=== PATIENT | male | born 1960 | race African-American/Black ===

== ENCOUNTER 2016-12-20 18:19 | Inpatient (IN) | payer MEDICAID ==
[~2016-12-20] VITALS: Ht 170.2 cm; Wt 123.8 kg
[~2016-12-20 18:19] MED LIST: ALEN70TA55 PO; ATOR10TA52 PO; BACL10TA PO; BACL20TA PO; CEPH-37 PO; CHOL10009 PO; DICL1CAP2 PO; ERGO1CAP6 PO; FAM20T PO; FAMO-12 PO; FUR40T PO; HYDR-4072 PO; INSU70IN3 SC; INSU70IN9 SC; LEV100T PO; LEVO150T10 PO; METO5TAB56 PO; NOR10T PO; POT10T PO; POTA10TA79 PO; SACC250C PO; [UNRECOGNIZED DRUG - CODE] EX
[2016-12-20 19:56] LABS: Basophils # (auto) 0 uL; Basophils % (auto) 0.1 % (0.0-2.0); CONDITION Y; Eosinophils # (auto) 0 uL; Eosinophils % (auto) 0.5 % (0.0-7.0); Hematocrit 45.3 % (41.0-53.0); Hemoglobin 15.2 g/dL (13.5-17.5); Lymphocytes # (auto) 1.9 uL; Lymphocytes % (auto) 21.1 % (10.0-50.0); Mean Corpuscular Hemoglobin 29.8 pg (28.0-32.0); Mean Corpuscular Hgb Conc. 33.5 g/dL (32.0-36.0); Mean Platelet Volume 10.7 fL (7.4-10.4); Monocytes # (auto) 0.4 uL; Monocytes % (auto) 4.7 % (0.0-12.0); Neutrophils # (auto) 6.6 uL; Neutrophils % (auto) 73.6 % (37.0-80.0); Platelet Count (auto) 231 10^3/uL (140-450); Red Cell Distribution Width 13.9 % (11.6-16.0)
[2016-12-20 20:16] LABS: Albumin 3.9 g/dL (3.4-5.0); Anion Gap 16 (5-15); Blood Urea Nitrogen 25 mg/dL (7-18); Calcium 8.6 mg/dL (8.5-10.1); Carbon Dioxide 31 mmol/L (21-32); Chloride 76 mmol/L (98-107); Sodium 123 mmol/L (136-145)
[2016-12-20 20:21] LABS: Aspartate Aminotransferase 30 U/L (15-37); BUN/Creatinine Ratio 11.5; GFR African American 41 mL/min; GFR Non-African American 34 mL/min; Total Protein 9.2 g/dL (6.4-8.2)
[2016-12-20 20:24] LABS: Alkaline Phosphatase 126 U/L (45-117)
[2016-12-20 20:28] LABS: Glucose 799 mg/dL (74-106); Potassium 2.6 mmol/L (3.5-5.1)
[2016-12-20] MEDS ORDERED: SODIUM CHLORIDE 0.9% 1,000 ML IV ONE ×2 (20:45→21:00)
[2016-12-20] MEDS ORDERED: cefTRIAXone 1GM/50ML D5W 50 ML IV ONE ×2 (21:00→21:15)
[2016-12-20] MEDS ORDERED: POTASSIUM CHL 20 Meq TABLET PO ONE (21:00)
[2016-12-20] MEDS: POTASSIUM CHL 20MEQ/100ML 100 ML IV SCH ×2 (21:09→22:46)
[2016-12-20] MEDS ORDERED: DOXYCYCLINE 100 MG TAB/CAP PO ONE (21:15)
[2016-12-20] MEDS ORDERED: LIDOCAINE W/ EPINEPHRINE 2% INJ 20ML VIAL ONE (21:30)
[2016-12-20] MEDS ORDERED: LIDOCAINE W/ EPINEPHRINE 2% INJ 20ML VIAL IJ ONE (21:30)
[2016-12-20] MEDS ORDERED: LIDOCAINE W/ EPINEPHRINE 1 % INJ 30ML ONE (21:30)
[2016-12-20] MEDS ORDERED: InsuLIN REG 1unit/0.01ml Soln (100units/ml) IV ONE (21:45)
[2016-12-20 21:55] LABS: B-Type Natriuretic Peptide 17.45 pg/mL (0-100); Temperature: 22.9 C (20.0-25.0)
[2016-12-20 21:56] LABS: Lactic Acid w/Reflex 2.5 mmol/L (0.4-2.0)
[2016-12-20 22:28] LABS: REFLEX LACTIC ACID YES OR NO YES
[2016-12-20] MEDS ORDERED: SULFAMETHOX W/TRIMETH(800/160MG) DS TAB PO ONE (23:00)
[2016-12-21] MEDS ORDERED: InsuLIN REG 1unit/0.01ml Soln (100units/ml) ONE (03:39)
[2016-12-21] MEDS ORDERED: SODIUM CHLORIDE 0.9% 1,000 ML IV SCH (06:40)
[2016-12-21] MEDS ORDERED: NITROGLYCERIN 0.4 MG SL TAB SL PRN (06:45)
[2016-12-21] MEDS ORDERED: DEXTROSE (50%) 50ML SYRG IV PRN (06:45)
[2016-12-21] MEDS ORDERED: TEMAZEPAM 15 MG CAP PO PRN (06:45)
[2016-12-21] MEDS ORDERED: ACETAMINOPHEN 325 MG TAB PO PRN (06:45)
[2016-12-21] MEDS ORDERED: MORPHINE SULF INJ 2 MG/ML SYRINGE 1ML IV PRN (06:45)
[2016-12-21] MEDS ORDERED: ONDANSETRON HCL 4 MG/2 ML VIAL IV PRN (06:45)
[2016-12-21] MEDS ORDERED: InsuLIN REG 1unit/0.01ml Soln (100units/ml) SC SCH (08:00)
[2016-12-21] MEDS: ACCU-CHEK COMFORT CURVE STRIP VI SCH ×3 (08:16→17:34)
[2016-12-21] MEDS: cefTRIAXone 1GM/50ML D5W 50 ML IV SCH (08:18)
[2016-12-21] MEDS: LEVOTHYROXINE SODIUM 50 MCG TAB PO SCH (08:38)
[2016-12-21] MEDS: FAMOTIDINE 20 MG TAB PO SCH ×2 (08:38→21:02)
[2016-12-21] MEDS: ENOXAPARIN SOD 40 MG/0.4 ML SYRINGE SC SCH (08:38)
[2016-12-21] MEDS: FUROSEMIDE 40 MG TAB PO SCH (08:38)
[2016-12-21 08:45] LABS: BUN/Creatinine Ratio 12.1
[2016-12-21 08:50] LABS: Potassium 2.9 mmol/L (3.5-5.1)
[2016-12-21] MEDS ORDERED: POTASSIUM CHL 20 Meq TABLET PO ONE ×2 (09:00→13:45)
[2016-12-21] MEDS ORDERED: MORPHINE SULFATE 4 MG/ML SYRG IV PRN (09:43)
[2016-12-21] MEDS ORDERED: POTASSIUM CHL 10 Meq TABLET PO SCH (10:00)
[2016-12-21 11:25] VITALS: BP 114/73
[2016-12-21 12:08] VITALS: BP 114/73
[2016-12-21 13:41] LABS: Urine Bilirubin Negative (Negative); Urine Blood Negative /uL (Negative); Urine Color Yellow (Yellow); Urine Ketone Negative (Negative); Urine Nitrite Negative (Negative); Urine RBC 1 /hpf (0 - 3); Urine Squamous Epithelial Cell FEW /hpf (<5); Urine Urobilinogen Normal (Negative)
[2016-12-21] MEDS ORDERED: SOD CHL 0.9%/ KCL 20MEQ 1,000 ML IV SCH (13:45)
[2016-12-21 13:58] LABS: Urine Glucose 4+ mg/dL (Normal)
[2016-12-21] MEDS ORDERED: INSULIN DETEMIR(LEVEMIR) 1unit/0.01ml Soln (100units/ml) SC ONE (14:45)
[2016-12-21] MEDS: MAGNESIUM SULFATE 1GM/100ML 100 ML IV SCH ×2 (15:34→17:01)
[2016-12-21 16:20] VITALS: BP 91/59
[2016-12-21] MEDS: InsuLIN REG 1unit/0.01ml Soln (100units/ml) SC SCH ×2 (17:35→21:13)
[2016-12-21 19:18] LABS: BUN/Creatinine Ratio 12.1; Calcium 8.2 mg/dL (8.5-10.1); Magnesium 3.1 mg/dL (1.6-2.6); Potassium 3.1 mmol/L (3.5-5.1)
[2016-12-21] MEDS: SOD CHL 0.9%/ KCL 20MEQ 1,000 ML IV SCH (21:02)
[2016-12-21] MEDS: INSULIN 70/30 1unit/0.01ml Susp (100units/ml) SC SCH (21:13)
[2016-12-21 22:00] VITALS: BP 89/41
[2016-12-21] MEDS ORDERED: INSULIN DETEMIR(LEVEMIR) 1unit/0.01ml Soln (100units/ml) SC SCH (22:00)
[2016-12-22] MEDS: SOD CHL 0.9%/ KCL 20MEQ 1,000 ML IV SCH (04:00)
[2016-12-22 05:30] VITALS: BP 100/67
[2016-12-22 06:44] LABS: Basophils # (auto) 0 uL; Basophils % (auto) 0.3 % (0.0-2.0); CONDITION Y; Eosinophils # (auto) 0.1 uL; Eosinophils % (auto) 1.1 % (0.0-7.0); Hematocrit 38.6 % (41.0-53.0); Hemoglobin 13.1 g/dL (13.5-17.5); Lymphocytes # (auto) 2.2 uL; Lymphocytes % (auto) 30.1 % (10.0-50.0); Mean Corpuscular Hemoglobin 30.3 pg (28.0-32.0); Mean Corpuscular Volume 89.2 fL (80.0-100.0); Mean Platelet Volume 10.5 fL (7.4-10.4); Monocytes # (auto) 0.5 uL; Monocytes % (auto) 6.8 % (0.0-12.0); Neutrophils # (auto) 4.6 uL; Neutrophils % (auto) 61.7 % (37.0-80.0); Platelet Count (auto) 205 10^3/uL (140-450); Red Cell Distribution Width 13.9 % (11.6-16.0); White Blood Cell 7.4 10^3/uL (4.4-10.8)
[2016-12-22] MEDS: InsuLIN REG 1unit/0.01ml Soln (100units/ml) SC SCH ×4 (06:52→21:13)
[2016-12-22] MEDS: ACCU-CHEK COMFORT CURVE STRIP VI SCH ×4 (06:52→21:13)
[2016-12-22] MEDS: LEVOTHYROXINE SODIUM 50 MCG TAB PO SCH (06:52)
[2016-12-22 07:11] LABS: Albumin 2.8 g/dL (3.4-5.0); BUN/Creatinine Ratio 13.9; Bilirubin, Total 0.5 mg/dL (0.2-1.0); Calcium 7.8 mg/dL (8.5-10.1)
[2016-12-22 07:14] LABS: Potassium 2.6 mmol/L (3.5-5.1)
[2016-12-22 08:00] VITALS: BP 91/59
[2016-12-22] MEDS: FAMOTIDINE 20 MG TAB PO SCH ×2 (08:33→21:14)
[2016-12-22] MEDS: cefTRIAXone 1GM/50ML D5W 50 ML IV SCH (08:33)
[2016-12-22] MEDS: D5W/SOD CHL 0.9%/KCL 40MEQ 1,000 ML IV SCH (08:34)
[2016-12-22] MEDS: FUROSEMIDE 40 MG TAB PO SCH (08:53)
[2016-12-22] MEDS: ENOXAPARIN SOD 40 MG/0.4 ML SYRINGE SC SCH (08:54)
[2016-12-22 09:05] VITALS: BP 91/59
[2016-12-22] MEDS: POTASSIUM CHL 10 Meq TABLET PO SCH (10:14)
[2016-12-22] MEDS: INSULIN 70/30 1unit/0.01ml Susp (100units/ml) SC SCH ×2 (10:15→21:58)
[2016-12-22] MEDS: HYDROcodone-ACET 5/325MG TAB PO PRN ×3 (12:12→21:12)
[2016-12-22 13:06] VITALS: BP 83/48
[2016-12-22 16:31] VITALS: BP 98/63
[2016-12-22 21:14] LABS: Urine RBC None Seen /hpf (0 - 3)
[2016-12-22] MEDS: NYSTATIN TOPICAL CREAM 15GM TOP SCH (21:19)
[2016-12-22 21:36] LABS: Urine Bilirubin Negative (Negative); Urine Blood Negative /uL (Negative); Urine Color Yellow (Yellow); Urine Ketone Negative (Negative); Urine Nitrite Negative (Negative); Urine Squamous Epithelial Cell FEW /hpf (<5); Urine Urobilinogen Normal (Negative)
[2016-12-22 21:40] LABS: Urine Glucose 4+ mg/dL (Normal)
[2016-12-22 22:00] VITALS: BP 92/58
[2016-12-23] MEDS: D5W/SOD CHL 0.9%/KCL 40MEQ 1,000 ML IV SCH (04:15)
[2016-12-23] MEDS: HYDROcodone-ACET 5/325MG TAB PO PRN ×2 (04:31→09:15)
[2016-12-23 05:00] VITALS: BP 92/62
[2016-12-23] MEDS: LEVOTHYROXINE SODIUM 50 MCG TAB PO SCH (06:03)
[2016-12-23] MEDS: INSULIN 70/30 1unit/0.01ml Susp (100units/ml) SC SCH ×2 (07:00→22:53)
[2016-12-23] MEDS: ACCU-CHEK COMFORT CURVE STRIP VI SCH ×4 (07:01→21:00)
[2016-12-23] MEDS: InsuLIN REG 1unit/0.01ml Soln (100units/ml) SC SCH ×4 (07:01→21:45)
[2016-12-23 08:00] VITALS: BP 90/44
[2016-12-23 08:26] LABS: Albumin 2.7 g/dL (3.4-5.0); BUN/Creatinine Ratio 11.4; Calcium 7.7 mg/dL (8.5-10.1); Potassium 3.1 mmol/L (3.5-5.1)
[2016-12-23 08:29] LABS: Bilirubin, Total 0.4 mg/dL (0.2-1.0); Total Protein 6.8 g/dL (6.4-8.2)
[2016-12-23] MEDS: FUROSEMIDE 40 MG TAB PO SCH (10:00)
[2016-12-23] MEDS: POTASSIUM CHL 10 Meq TABLET PO SCH (10:54)
[2016-12-23] MEDS: FAMOTIDINE 20 MG TAB PO SCH ×2 (10:54→22:50)
[2016-12-23] MEDS: cefTRIAXone 1GM/50ML D5W 50 ML IV SCH (10:54)
[2016-12-23] MEDS: ENOXAPARIN SOD 40 MG/0.4 ML SYRINGE SC SCH (10:55)
[2016-12-23] MEDS: NYSTATIN TOPICAL CREAM 15GM TOP SCH ×2 (10:57→22:56)
[2016-12-23 11:00] VITALS: BP 94/57
[2016-12-23 17:00] VITALS: BP 96/51
[2016-12-23] MEDS: FLUCONAZOLE 100 MG TAB PO SCH (18:47)
[2016-12-23] MEDS ORDERED: HYDROcodone-ACET 10/325MG TAB PO ONE (19:15)
[2016-12-23 20:00] VITALS: BP 98/72
[2016-12-23 22:00] VITALS: BP 98/72
[2016-12-24] VITALS (7 sets, daily range): BP systolic 84–109; BP diastolic 36–68
[2016-12-24 06:07] LABS: Basophils # (auto) 0 uL; Basophils % (auto) 0.6 % (0.0-2.0); CONDITION Y; Eosinophils # (auto) 0.1 uL; Eosinophils % (auto) 1.5 % (0.0-7.0); Hematocrit 39.4 % (41.0-53.0); Hemoglobin 13.1 g/dL (13.5-17.5); Lymphocytes # (auto) 2.6 uL; Lymphocytes % (auto) 34.4 % (10.0-50.0); Mean Corpuscular Hemoglobin 29.7 pg (28.0-32.0); Mean Corpuscular Hgb Conc. 33.2 g/dL (32.0-36.0); Mean Corpuscular Volume 89.4 fL (80.0-100.0); Monocytes # (auto) 0.6 uL; Monocytes % (auto) 7.5 % (0.0-12.0); Neutrophils # (auto) 4.2 uL; Platelet Count (auto) 223 10^3/uL (140-450); Red Cell Distribution Width 14.4 % (11.6-16.0); White Blood Cell 7.6 10^3/uL (4.4-10.8)
[2016-12-24] MEDS: InsuLIN REG 1unit/0.01ml Soln (100units/ml) SC SCH ×4 (06:11→22:42)
[2016-12-24] MEDS: ACCU-CHEK COMFORT CURVE STRIP VI SCH ×4 (06:12→21:00)
[2016-12-24] MEDS: LEVOTHYROXINE SODIUM 50 MCG TAB PO SCH (06:21)
[2016-12-24] MEDS: HYDROcodone-ACET 5/325MG TAB PO PRN ×3 (06:23→22:40)
[2016-12-24 06:35] LABS: BUN/Creatinine Ratio 12.5; Potassium 3.1 mmol/L (3.5-5.1)
[2016-12-24] MEDS: INSULIN 70/30 1unit/0.01ml Susp (100units/ml) SC SCH ×2 (07:00→23:40)
[2016-12-24] MEDS: FLUCONAZOLE 100 MG TAB PO SCH (10:41)
[2016-12-24] MEDS: ENOXAPARIN SOD 40 MG/0.4 ML SYRINGE SC SCH (10:41)
[2016-12-24] MEDS: POTASSIUM CHL 10 Meq TABLET PO SCH (10:41)
[2016-12-24] MEDS: FAMOTIDINE 20 MG TAB PO SCH ×2 (10:42→22:40)
[2016-12-24] MEDS: cefTRIAXone 1GM/50ML D5W 50 ML IV SCH (10:42)
[2016-12-24] MEDS: NYSTATIN TOPICAL CREAM 15GM TOP SCH ×2 (10:47→23:43)
[2016-12-24] MEDS ORDERED: INSULIN 70/30 1unit/0.01ml Susp (100units/ml) SC ONE (12:30)
[2016-12-24] MEDS ORDERED: POTASSIUM CHL 20 Meq TABLET PO ONE (12:30)
[2016-12-24] MEDS ORDERED: InsuLIN REG 1unit/0.01ml Soln (100units/ml) SC ONE (14:30)
[2016-12-25 05:00] VITALS: BP 100/68
[2016-12-25] MEDS: LEVOTHYROXINE SODIUM 50 MCG TAB PO SCH (06:57)
[2016-12-25] MEDS: ACCU-CHEK COMFORT CURVE STRIP VI SCH ×3 (06:58→17:52)
[2016-12-25] MEDS: InsuLIN REG 1unit/0.01ml Soln (100units/ml) SC SCH ×3 (06:58→18:08)
[2016-12-25] MEDS: INSULIN 70/30 1unit/0.01ml Susp (100units/ml) SC SCH (06:59)
[2016-12-25] MEDS: HYDROcodone-ACET 5/325MG TAB PO PRN ×2 (07:00→11:48)
[2016-12-25 09:02] VITALS: BP 93/52
[2016-12-25] MEDS: cefTRIAXone 1GM/50ML D5W 50 ML IV SCH (09:59)
[2016-12-25] MEDS: POTASSIUM CHL 10 Meq TABLET PO SCH (10:04)
[2016-12-25] MEDS: FLUCONAZOLE 100 MG TAB PO SCH (10:04)
[2016-12-25] MEDS: FAMOTIDINE 20 MG TAB PO SCH (10:04)
[2016-12-25] MEDS: ENOXAPARIN SOD 40 MG/0.4 ML SYRINGE SC SCH (10:05)
[2016-12-25] MEDS: NYSTATIN TOPICAL CREAM 15GM TOP SCH (10:05)
[2016-12-25 12:30] VITALS: BP 115/72
[2016-12-25 17:23] VITALS: BP 98/77
[2016-12-25 18:21] VITALS: BP 98/77
== END 2016-12-25 19:55 | disposition home or self-care (01) | DRG 383 ==
LOC: ER 18:50 → TELE 18:51 → TELE-E-ADS 12-21 09:39 → TELE-WESTW 12-21 15:22 → WEST WING 12-23 01:32
PROVIDERS: ADMIT Nurse Practitioner; ATTEND Hospitalist
DX: L02.11 Cutaneous abscess of neck (principal); E13.10 Other specified diabetes mellitus with ketoacidosis without coma; I95.9 Hypotension, unspecified; E11.22 Type 2 diabetes mellitus with diabetic chronic kidney disease; E87.1 Hypo-osmolality and hyponatremia; N39.0 Urinary tract infection, site not specified; E66.01 Morbid (severe) obesity due to excess calories; E87.6 Hypokalemia; E86.0 Dehydration; E03.9 Hypothyroidism, unspecified; N18.9 Chronic kidney disease, unspecified; F12.90 Cannabis use, unspecified, uncomplicated; T50.1X5A Adverse effect of loop [high-ceiling] diuretics, initial encounter; Z79.4 Long term (current) use of insulin; Z83.3 Family history of diabetes mellitus; Z82.0 Family history of epilepsy and other diseases of the nervous system; Z83.49 Family history of other endocrine, nutritional and metabolic diseases; Z71.89 Other specified counseling; Z68.41 Body mass index [BMI] 40.0-44.9, adult; Z87.891 Personal history of nicotine dependence
CPT/HCPCS: 10060; 36415; 71020; 71250; 80048; 80053; 80061; 81001; 82010; 82962; 83036; 83605; 83735; 83880; 84484; 85025; 87040; 87086; 87088; 87186; 93005; 96361; 96365; 96372; 96375; J0696; J1815; J3480

== ENCOUNTER 2023-07-05 17:33 | Inpatient (IN) | payer MEDICAID ==
[~2023-07-05] VITALS: Ht 170.2 cm; Wt 124.0 kg
[~2023-07-05 17:33] MED LIST changes: -ALEN70TA55 PO; +ALEN70TA74 PO; -BACL20TA PO; -CEPH-37 PO; -ERGO1CAP6 PO; -FAM20T PO; -FAMO-12 PO; +FAMO20TA10 PO; -HYDR-4072 PO; -INSU70IN3 SC; -LEVO150T10 PO; +METO5TAB5 PO; -METO5TAB56 PO; -POT10T PO; -POTA10TA79 PO; -SACC250C PO
[2023-07-05 18:56] LABS: Basophils # (auto) 0.1 10 ^3/uL (0-0.2); Basophils % (auto) 1.9 % (0.0-2.0); Eosinophils # (auto) 0.2 10 ^3/uL (0-0.8); Eosinophils % (auto) 4.2 % (0.0-7.0); Hematocrit 25.5 % (41.0-53.0); Hemoglobin 8.4 g/dL (13.5-17.5); Lymphocytes # (auto) 0.8 10 ^3/uL (0.4-5.4); Lymphocytes % (auto) 20.8 % (10.0-50.0); Mean Corpuscular Hemoglobin 30.8 pg (28.0-32.0); Mean Corpuscular Hgb Conc. 32.9 g/dL (32.0-36.0); Mean Corpuscular Volume 93.5 fL (80.0-100.0); Monocytes # (auto) 0.2 10 ^3/uL (0-1.3); Monocytes % (auto) 4.6 % (0.0-12.0); Neutrophils # (auto) 2.8 10 ^3/uL (1.6-8.6); Neutrophils % (auto) 68.5 % (37.0-80.0); Nucleated Red Blood Cells % 0.1 %; Red Blood Cells 2.72 10^6/uL (4.5-5.90); White Blood Cell 4.1 10^3/uL (4.4-10.8)
[2023-07-05 19:15] LABS: Alanine Aminotransferase 17 U/L (7-40); Albumin 3.8 g/dL (3.2-4.8); Alkaline Phosphatase 58 U/L (46-116); Anion Gap 22 (5-15); Aspartate Aminotransferase 26 U/L (13-40); Bilirubin, Total 0.2 mg/dL (0.2-1.0); Calcium 6.8 mg/dL (8.5-10.1); Carbon Dioxide 16 mmol/L (20-30); Chloride 97 mmol/L (98-107); Glucose 140 mg/dL (74-106); Sodium 135 mmol/L (136-145); Total Protein 7.8 g/dL (5.7-8.2)
[2023-07-05 19:24] LABS: Blood Urea Nitrogen 122 mg/dL (9-23); Potassium 5.8 mmol/L (3.5-5.1)
[2023-07-05] MEDS ORDERED: FUROSEMIDE 40 MG/4 ML VIAL IV ONE (21:15)
[2023-07-05] MEDS ORDERED: SODIUM ZIRCONIUM CYCL 10 GM PAK PO ONE (21:15)
[2023-07-05] MEDS ORDERED: DEXTROSE (50%) 50ML SYRG IV PRN (21:30)
[2023-07-05] MEDS ORDERED: ONDANSETRON HCL 4 MG/2 ML VIAL IV PRN (21:30)
[2023-07-05] MEDS ORDERED: HYDROcodone-ACET 5/325MG TAB PO PRN (21:30)
[2023-07-05] MEDS ORDERED: ACETAMINOPHEN 325 MG TAB PO PRN (21:30)
[2023-07-05] MEDS ORDERED: MAALOX PLUS or MAALOX 30 ML PO PRN (21:30)
[2023-07-05] MEDS ORDERED: MORPHINE SULFATE INJ 2 MG/ml SYRG IV PRN (21:30)
[2023-07-06 01:46] VITALS: PULSE 72; RESP 13; O2SAT 92
[2023-07-06] MEDS: ACCU-CHEK COMFORT CURVE STRIP VI SCH ×5 (02:30→22:17)
[2023-07-06] MEDS: InsuLIN REG 1unit/0.01ml Soln (100units/ml) SC SCH ×5 (02:30→22:00)
[2023-07-06 05:46] LABS: Basophils # (auto) 0.1 10 ^3/uL (0-0.2); Basophils % (auto) 1.8 % (0.0-2.0); Eosinophils # (auto) 0.2 10 ^3/uL (0-0.8); Eosinophils % (auto) 4.5 % (0.0-7.0); Hematocrit 25.8 % (41.0-53.0); Hemoglobin 8.5 g/dL (13.5-17.5); Lymphocytes % (auto) 25.5 % (10.0-50.0); Mean Corpuscular Hemoglobin 30.9 pg (28.0-32.0); Mean Corpuscular Hgb Conc. 33.1 g/dL (32.0-36.0); Mean Corpuscular Volume 93.4 fL (80.0-100.0); Monocytes # (auto) 0.2 10 ^3/uL (0-1.3); Monocytes % (auto) 4.7 % (0.0-12.0); Neutrophils # (auto) 2.5 10 ^3/uL (1.6-8.6); Neutrophils % (auto) 63.5 % (37.0-80.0); Nucleated Red Blood Cells % 0.2 %; Red Blood Cells 2.77 10^6/uL (4.5-5.90); White Blood Cell 3.9 10^3/uL (4.4-10.8)
[2023-07-06 05:47] LABS: Red Cell Distribution Width 22.1 % (11.8-14.3)
[2023-07-06 05:56] LABS: Calcium 6.8 mg/dL (8.5-10.1); Chloride 96 mmol/L (98-107); Sodium 135 mmol/L (136-145)
[2023-07-06 05:57] LABS: Anion Gap 22 (5-15); Carbon Dioxide 17 mmol/L (20-30)
[2023-07-06 06:02] LABS: BUN/Creatinine Ratio 6.8 (10.0-20.0); Glucose 77 mg/dL (74-106)
[2023-07-06 06:06] LABS: Blood Urea Nitrogen 138 mg/dL (9-23); Potassium 6.2 mmol/L (3.5-5.1)
[2023-07-06 07:30] VITALS: PULSE 64; RESP 18; O2SAT 94
[2023-07-06] MEDS ORDERED: DEXTROSE (50%) 50ML SYRG IV ONE (10:15)
[2023-07-06] MEDS ORDERED: ALBUTEROL SULF 2.5 MG/0.5ML(0.5%) NEB SOLN NEB ONE (10:15)
[2023-07-06] MEDS ORDERED: CALCIUM GLUC 1,000mg/50ml-NS 50 ML IV ONE (10:15)
[2023-07-06] MEDS ORDERED: FUROSEMIDE 40 MG/4 ML VIAL IV ONE (10:15)
[2023-07-06] MEDS ORDERED: InsuLIN REG 1unit/0.01ml Soln (100units/ml) IV ONE (10:15)
[2023-07-06] MEDS ORDERED: SODIUM ZIRCONIUM CYCL 10 GM PAK PO ONE (10:15)
[2023-07-06 11:13] LABS: Base Excess -12.3 mmol/L (-2.0-2.0)
[2023-07-06] MEDS ORDERED: ALENDRONATE SODIUM 10 MG TAB PO SCH (12:00)
[2023-07-06] MEDS ORDERED: DEXTROSE (50%) 50ML SYRG IV PRN (12:00)
[2023-07-06 12:21] LABS: Chloride 98 mmol/L (98-107); Sodium 135 mmol/L (136-145)
[2023-07-06 12:22] LABS: Anion Gap 20 (5-15); Calcium 6.4 mg/dL (8.5-10.1); Carbon Dioxide 17 mmol/L (20-30)
[2023-07-06 12:27] LABS: BUN/Creatinine Ratio 5.4 (10.0-20.0); Glucose 104 mg/dL (74-106)
[2023-07-06 12:29] LABS: Phosphorus 17.5 mg/dL (2.4-5.1)
[2023-07-06 12:38] LABS: Blood Urea Nitrogen 108 mg/dL (9-23); Potassium 6.1 mmol/L (3.5-5.1)
[2023-07-06] MEDS ORDERED: LEVOTHYROXINE SODIUM 50 MCG TAB PO ONE (14:15)
[2023-07-06 15:37] LABS: Anion Gap 22 (5-15); Carbon Dioxide 18 mmol/L (20-30); Chloride 96 mmol/L (98-107); Potassium 5.1 mmol/L (3.5-5.1); Sodium 136 mmol/L (136-145)
[2023-07-06 15:38] LABS: Calcium 6.6 mg/dL (8.5-10.1)
[2023-07-06 15:43] LABS: BUN/Creatinine Ratio 6.8 (10.0-20.0); Glucose 82 mg/dL (74-106)
[2023-07-06 15:54] LABS: Blood Urea Nitrogen 137 mg/dL (9-23)
[2023-07-06] MEDS ORDERED: SEVELAMER 800 MG TAB PO ONE (19:00)
[2023-07-06] MEDS ORDERED: ENOXAPARIN SOD 60 MG/0.6 ML SYRINGE SC ONE (19:00)
[2023-07-06] MEDS ORDERED: amLODIPine BESYLATE 5 MG TAB PO ONE (19:00)
[2023-07-06] MEDS: FUROSEMIDE 40 MG/4 ML VIAL IV SCH (19:09)
[2023-07-06 19:52] VITALS: PULSE 81; RESP 12; O2SAT 95
[2023-07-06] MEDS: HYDROcodone-ACET 5/325MG TAB PO PRN (21:17)
[2023-07-06 22:26] LABS: COVID19 ANTIGEN SOFIA FIA NEGATIVE (NEGATIVE); Rapid Influenza A Negative (Negative); Rapid Influenza B Negative (Negative)
[2023-07-06] MEDS: ATORVASTATIN 20 MG TAB PO SCH (22:29)
[2023-07-06 23:23] LABS: Urine Epithelial Cast None Seen /hpf (<5)
[2023-07-06 23:33] LABS: Urine Bacteria NONE SEEN /hpf (None Seen); Urine Blood 2+ /uL (Negative); Urine Clarity Clear (Clear); Urine Color Yellow (Yellow); Urine Protein, UAD 4+ (Negative); Urine Urobilinogen Normal (Negative); Urine WBC 5 /hpf (0 - 3)
[2023-07-06 23:35] LABS: Sodium Urine 31 mmol/L (40-220)
[2023-07-06 23:42] LABS: Amphetamine Screen, Urine Neg (NEGATIVE); Barbiturate Scree,Urine Neg (NEGATIVE); Benzodiazephine Screen, Urine Neg (NEGATIVE); Cocaine Screen, Urine Neg (NEGATIVE); Opiate Scree,Urine Neg (NEGATIVE)
[2023-07-06 23:43] LABS: Cannabinoid Screen, Urine Pos (NEGATIVE); Creatinine, Urine 66.31 mg/dL (30.0-125.0); Phencyclidine Screen, Urine Neg (NEGATIVE)
[2023-07-06 23:45] LABS: Protein, Urine > 2500.0 mg/dL (0.0-11.9)
[2023-07-07] MEDS: HYDROcodone-ACET 5/325MG TAB PO PRN (03:53)
[2023-07-07] MEDS: FUROSEMIDE 40 MG/4 ML VIAL IV SCH ×2 (06:09→17:36)
[2023-07-07] MEDS: ACCU-CHEK COMFORT CURVE STRIP VI SCH ×4 (06:53→22:25)
[2023-07-07] MEDS: InsuLIN REG 1unit/0.01ml Soln (100units/ml) SC SCH ×4 (06:53→22:00)
[2023-07-07] MEDS: LEVOTHYROXINE SODIUM 50 MCG TAB PO SCH (07:01)
[2023-07-07 07:07] LABS: Anion Gap 21 (5-15); Carbon Dioxide 15 mmol/L (20-30); Chloride 97 mmol/L (98-107); Sodium 133 mmol/L (136-145)
[2023-07-07 07:08] LABS: Calcium 6.2 mg/dL (8.7-10.4)
[2023-07-07 07:10] LABS: Basophils # (auto) 0.1 10 ^3/uL (0-0.2); Eosinophils # (auto) 0.1 10 ^3/uL (0-0.8); Eosinophils % (auto) 3.8 % (0.0-7.0); Hemoglobin 7.7 g/dL (13.5-17.5); Lymphocytes # (auto) 0.8 10 ^3/uL (0.4-5.4); Monocytes # (auto) 0.3 10 ^3/uL (0-1.3); White Blood Cell 3.9 10^3/uL (4.4-10.8)
[2023-07-07 07:12] LABS: Glucose 59 mg/dL (74-106); Uric Acid 9.3 mg/dL (3.7-9.2)
[2023-07-07 07:13] LABS: Magnesium 2.8 mg/dL (1.6-2.6)
[2023-07-07 07:14] LABS: Basophils % (auto) 1.5 % (0.0-2.0); Hematocrit 22.9 % (41.0-53.0); Lymphocytes % (auto) 21.6 % (10.0-50.0); Mean Corpuscular Hgb Conc. 33.7 g/dL (32.0-36.0); Mean Corpuscular Volume 95.1 fL (80.0-100.0); Monocytes % (auto) 7.9 % (0.0-12.0); Neutrophils # (auto) 2.5 10 ^3/uL (1.6-8.6); Neutrophils % (auto) 65.2 % (37.0-80.0); Nucleated Red Blood Cells % 0.2 %; Red Blood Cells 2.41 10^6/uL (4.5-5.90)
[2023-07-07 07:15] LABS: Phosphorus 17.2 mg/dL (2.4-5.1)
[2023-07-07 07:24] LABS: Blood Urea Nitrogen 137 mg/dL (9-23); Potassium 6.5 mmol/L (3.5-5.1)
[2023-07-07 07:28] LABS: Red Cell Distribution Width 21.3 % (11.8-14.3)
[2023-07-07 07:50] VITALS: PULSE 77; RESP 14; O2SAT 95
[2023-07-07] MEDS: SEVELAMER 800 MG TAB PO SCH ×3 (08:13→17:36)
[2023-07-07] MEDS: amLODIPine BESYLATE 5 MG TAB PO SCH (10:00)
[2023-07-07] MEDS: SODIUM ZIRCONIUM CYCL 10 GM PAK PO SCH (10:00)
[2023-07-07] MEDS: ENOXAPARIN SOD 60 MG/0.6 ML SYRINGE SC SCH (10:00)
[2023-07-07] MEDS ORDERED: LOPERAMIDE HCL 2 MG CAP/TAB PO PRN (12:30)
[2023-07-07 14:14] VITALS: BP 132/70; PULSE 83; PULSE 84; RESP 18; TEMP 97.3; O2SAT 100
[2023-07-07] MEDS: HYDROcodone-ACET 10/325MG TAB PO PRN (16:45)
[2023-07-07 20:00] VITALS: BP 129/67; PULSE 74; PULSE 77; RESP 22; TEMP 97.7; O2SAT 100
[2023-07-07 22:00] VITALS: BP 129/67; PULSE 77; RESP 22; TEMP 97.7; O2SAT 100
[2023-07-07] MEDS: ATORVASTATIN 20 MG TAB PO SCH (22:24)
[2023-07-08] VITALS (8 sets, daily range): BP systolic 102–147; BP diastolic 54–75; PULSE 77–88; RESP 17–22; TEMP 98.1–98.5; O2SAT 96–99
[2023-07-08] MEDS: LEVOTHYROXINE SODIUM 50 MCG TAB PO SCH (06:31)
[2023-07-08] MEDS: FUROSEMIDE 40 MG/4 ML VIAL IV SCH ×2 (06:32→17:51)
[2023-07-08 06:33] LABS: Basophils # (auto) 0.1 10 ^3/uL (0-0.2); Basophils % (auto) 1.6 % (0.0-2.0); Eosinophils # (auto) 0.1 10 ^3/uL (0-0.8); Lymphocytes # (auto) 0.7 10 ^3/uL (0.4-5.4); Mean Corpuscular Hemoglobin 30.6 pg (28.0-32.0); Monocytes # (auto) 0.3 10 ^3/uL (0-1.3); Neutrophils # (auto) 2.4 10 ^3/uL (1.6-8.6); Nucleated Red Blood Cells % 0.1 %; White Blood Cell 3.6 10^3/uL (4.4-10.8)
[2023-07-08 06:35] LABS: Hematocrit 24.2 % (41.0-53.0); Lymphocytes % (auto) 19.1 % (10.0-50.0); Mean Corpuscular Hgb Conc. 32.9 g/dL (32.0-36.0); Mean Corpuscular Volume 93.1 fL (80.0-100.0); Monocytes % (auto) 8.7 % (0.0-12.0); Neutrophils % (auto) 66.6 % (37.0-80.0)
[2023-07-08] MEDS: ACCU-CHEK COMFORT CURVE STRIP VI SCH ×2 (06:37→12:17)
[2023-07-08] MEDS: InsuLIN REG 1unit/0.01ml Soln (100units/ml) SC SCH ×2 (06:37→11:30)
[2023-07-08 06:40] LABS: Red Cell Distribution Width 21.4 % (11.8-14.3)
[2023-07-08 06:42] LABS: Chloride 99 mmol/L (98-107); Sodium 136 mmol/L (136-145)
[2023-07-08 06:43] LABS: Anion Gap 14 (5-15); Carbon Dioxide 23 mmol/L (20-30)
[2023-07-08 06:44] LABS: Calcium 6.3 mg/dL (8.7-10.4)
[2023-07-08 06:48] LABS: Glucose 87 mg/dL (74-106)
[2023-07-08 07:10] LABS: Blood Urea Nitrogen 103 mg/dL (9-23)
[2023-07-08] MEDS: SEVELAMER 800 MG TAB PO SCH ×3 (08:09→17:51)
[2023-07-08] MEDS: SODIUM ZIRCONIUM CYCL 10 GM PAK PO SCH (10:00)
[2023-07-08] MEDS: CALCIUM W/VIT D (600MG/400IU) TAB PO SCH (10:01)
[2023-07-08] MEDS: ENOXAPARIN SOD 60 MG/0.6 ML SYRINGE SC SCH (10:02)
[2023-07-08] MEDS: amLODIPine BESYLATE 5 MG TAB PO SCH (10:02)
[2023-07-08] MEDS: HYDROcodone-ACET 10/325MG TAB PO PRN (10:02)
[2023-07-08] MEDS: ATORVASTATIN 20 MG TAB PO SCH (20:47)
[2023-07-08] MEDS ORDERED: EPOETIN ALFA-EPBX 10,000 UNIT/1ML VIAL SC ONE (21:00)
[2023-07-09] VITALS (7 sets, daily range): BP systolic 124–150; BP diastolic 61–75; PULSE 76–83; RESP 16–22; TEMP 97.9–98.8; O2SAT 92–100
[2023-07-09] MEDS: HEPARIN SODIUM (PORCINE) 5000 UNITS/ML 1ML VIAL SC SCH ×3 (05:51→22:30)
[2023-07-09] MEDS: FUROSEMIDE 40 MG/4 ML VIAL IV SCH ×2 (05:54→17:22)
[2023-07-09] MEDS: LEVOTHYROXINE SODIUM 50 MCG TAB PO SCH (05:55)
[2023-07-09 06:50] LABS: Hematocrit 23.2 % (41.0-53.0); Hemoglobin 7.7 g/dL (13.5-17.5)
[2023-07-09 06:55] LABS: Chloride 98 mmol/L (98-107); Potassium 4.9 mmol/L (3.5-5.1); Sodium 135 mmol/L (136-145)
[2023-07-09 06:58] LABS: Anion Gap 16 (5-15); Carbon Dioxide 21 mmol/L (20-30)
[2023-07-09 06:59] LABS: Calcium 6.4 mg/dL (8.7-10.4)
[2023-07-09 07:03] LABS: BUN/Creatinine Ratio 5.8 (10.0-20.0); Glucose 83 mg/dL (74-106)
[2023-07-09 07:04] LABS: Magnesium 2.4 mg/dL (1.6-2.6)
[2023-07-09 07:05] LABS: % Iron Saturation 33.5 % (20-55)
[2023-07-09 07:07] LABS: Blood Urea Nitrogen 93 mg/dL (9-23)
[2023-07-09 08:41] LABS: Hepatitis B Surface Antigen Negative (Negative)
[2023-07-09 09:02] LABS: Hepatitis C Antibody Negative (Negative)
[2023-07-09] MEDS ORDERED: ENOXAPARIN SOD 60 MG/0.6 ML SYRINGE SC SCH (10:00)
[2023-07-09] MEDS: SEVELAMER 800 MG TAB PO SCH ×2 (13:29→17:23)
[2023-07-09] MEDS: amLODIPine BESYLATE 5 MG TAB PO SCH (13:29)
[2023-07-09] MEDS: CALCIUM W/VIT D (600MG/400IU) TAB PO SCH (13:30)
[2023-07-09] MEDS: DOCUSATE SOD 100 MG CAP PO PRN (22:26)
[2023-07-09] MEDS: ATORVASTATIN 20 MG TAB PO SCH (22:28)
[2023-07-10] VITALS (7 sets, daily range): BP systolic 115–149; BP diastolic 51–82; PULSE 78–91; RESP 16–20; TEMP 98.1–98.6; O2SAT 93–96
[2023-07-10] MEDS: HEPARIN SODIUM (PORCINE) 5000 UNITS/ML 1ML VIAL SC SCH ×3 (05:51→21:57)
[2023-07-10] MEDS: FUROSEMIDE 40 MG/4 ML VIAL IV SCH (05:54)
[2023-07-10] MEDS: LEVOTHYROXINE SODIUM 50 MCG TAB PO SCH (06:00)
[2023-07-10 06:39] LABS: Anion Gap 11 (5-15); Carbon Dioxide 26 mmol/L (20-30); Chloride 100 mmol/L (98-107); Potassium 4.1 mmol/L (3.5-5.1); Sodium 137 mmol/L (136-145)
[2023-07-10 06:40] LABS: Calcium 7.2 mg/dL (8.7-10.4)
[2023-07-10 06:45] LABS: BUN/Creatinine Ratio 4.7 (10.0-20.0); Glucose 71 mg/dL (74-106); Magnesium 2.2 mg/dL (1.6-2.6)
[2023-07-10 06:47] LABS: Phosphorus 7.5 mg/dL (2.4-5.1)
[2023-07-10 07:27] LABS: Blood Urea Nitrogen 54 mg/dL (9-23)
[2023-07-10] MEDS: amLODIPine BESYLATE 5 MG TAB PO SCH (09:34)
[2023-07-10] MEDS: CALCIUM W/VIT D (600MG/400IU) TAB PO SCH (09:34)
[2023-07-10] MEDS: SEVELAMER 800 MG TAB PO SCH ×3 (09:34→17:40)
[2023-07-10] MEDS: DOCUSATE SOD 100 MG CAP PO PRN (21:58)
[2023-07-10] MEDS: ATORVASTATIN 20 MG TAB PO SCH (21:59)
[2023-07-10] MEDS: METOPROLOL TARTRATE 25 MG TAB PO SCH (22:09)
[2023-07-11] VITALS (7 sets, daily range): BP systolic 122–150; BP diastolic 66–80; PULSE 73–80; RESP 17–20; TEMP 98–98.9; O2SAT 94–95
[2023-07-11] MEDS: HEPARIN SODIUM (PORCINE) 5000 UNITS/ML 1ML VIAL SC SCH ×3 (06:17→21:55)
[2023-07-11] MEDS: LEVOTHYROXINE SODIUM 50 MCG TAB PO SCH (06:18)
[2023-07-11 07:47] LABS: Chloride 100 mmol/L (98-107); Potassium 4.4 mmol/L (3.5-5.1); Sodium 136 mmol/L (136-145)
[2023-07-11 07:48] LABS: Anion Gap 12 (5-15); Carbon Dioxide 24 mmol/L (20-30)
[2023-07-11 07:49] LABS: Calcium 7.2 mg/dL (8.7-10.4)
[2023-07-11 07:50] LABS: Basophils # (auto) 0 10 ^3/uL (0-0.2); Eosinophils # (auto) 0.2 10 ^3/uL (0-0.8); Hemoglobin 7.6 g/dL (13.5-17.5); Monocytes # (auto) 0.3 10 ^3/uL (0-1.3); Neutrophils # (auto) 2.4 10 ^3/uL (1.6-8.6); Neutrophils % (auto) 59.7 % (37.0-80.0); Nucleated Red Blood Cells % 0.3 %
[2023-07-11 07:53] LABS: BUN/Creatinine Ratio 4.8 (10.0-20.0); Basophils % (auto) 1.2 % (0.0-2.0); Blood Urea Nitrogen 60 mg/dL (9-23); Eosinophils % (auto) 4.9 % (0.0-7.0); Glucose 69 mg/dL (74-106); Hematocrit 23.1 % (41.0-53.0); Mean Corpuscular Hemoglobin 30.8 pg (28.0-32.0); Mean Corpuscular Hgb Conc. 32.9 g/dL (32.0-36.0); Mean Corpuscular Volume 93.7 fL (80.0-100.0); Monocytes % (auto) 8.2 % (0.0-12.0); Red Blood Cells 2.46 10^6/uL (4.5-5.90)
[2023-07-11 07:54] LABS: Magnesium 2.4 mg/dL (1.6-2.6)
[2023-07-11 08:02] LABS: Red Cell Distribution Width 20.6 % (11.8-14.3)
[2023-07-11] MEDS: SEVELAMER 800 MG TAB PO SCH ×3 (09:26→18:03)
[2023-07-11] MEDS: CALCIUM W/VIT D (600MG/400IU) TAB PO SCH (09:26)
[2023-07-11] MEDS: FUROSEMIDE 40 MG/4 ML VIAL IV SCH (09:27)
[2023-07-11] MEDS: amLODIPine BESYLATE 5 MG TAB PO SCH (09:27)
[2023-07-11] MEDS: METOPROLOL TARTRATE 25 MG TAB PO SCH ×2 (09:27→21:51)
[2023-07-11] MEDS ORDERED: SODIUM CHL 0.9% 1000 ML BAG XX ONE (09:30)
[2023-07-11] MEDS ORDERED: EPOETIN ALFA-EPBX 10,000 UNIT/1ML VIAL SC ONE (21:00)
[2023-07-11] MEDS: ATORVASTATIN 20 MG TAB PO SCH (21:49)
[2023-07-12] VITALS (7 sets, daily range): BP systolic 121–141; BP diastolic 68–79; PULSE 75–84; RESP 17–18; TEMP 98–98.2; O2SAT 93–95
[2023-07-12] MEDS: HEPARIN SODIUM (PORCINE) 5000 UNITS/ML 1ML VIAL SC SCH (06:00)
[2023-07-12 06:14] LABS: Eosinophils # (auto) 0.2 10 ^3/uL (0-0.8); Monocytes # (auto) 0.4 10 ^3/uL (0-1.3)
[2023-07-12] MEDS: LEVOTHYROXINE SODIUM 50 MCG TAB PO SCH (06:17)
[2023-07-12 06:23] LABS: Chloride 102 mmol/L (98-107); Potassium 4.3 mmol/L (3.5-5.1); Sodium 138 mmol/L (136-145)
[2023-07-12 06:24] LABS: Anion Gap 10 (5-15); Calcium 7.6 mg/dL (8.7-10.4); Carbon Dioxide 26 mmol/L (20-30)
[2023-07-12 06:29] LABS: Glucose 71 mg/dL (74-106)
[2023-07-12 06:30] LABS: Magnesium 2.1 mg/dL (1.6-2.6)
[2023-07-12 06:32] LABS: Blood Urea Nitrogen 40 mg/dL (9-23); Phosphorus 5.9 mg/dL (2.4-5.1)
[2023-07-12 06:54] LABS: Basophils # (auto) 0.1 10 ^3/uL (0-0.2); Basophils % (auto) 1.2 % (0.0-2.0); Eosinophils % (auto) 4.7 % (0.0-7.0); Hematocrit 24.7 % (41.0-53.0); Lymphocytes % (auto) 20.7 % (10.0-50.0); Mean Corpuscular Hgb Conc. 32.5 g/dL (32.0-36.0); Mean Corpuscular Volume 92.3 fL (80.0-100.0); Monocytes % (auto) 8.2 % (0.0-12.0); Neutrophils # (auto) 3.1 10 ^3/uL (1.6-8.6); Neutrophils % (auto) 65.2 % (37.0-80.0); Nucleated Red Blood Cells % 0.1 %; Red Blood Cells 2.67 10^6/uL (4.5-5.90); Red Cell Distribution Width 19.7 % (11.8-14.3); White Blood Cell 4.7 10^3/uL (4.4-10.8)
[2023-07-12] MEDS: SEVELAMER 800 MG TAB PO SCH ×3 (08:24→18:01)
[2023-07-12] MEDS: METOPROLOL TARTRATE 25 MG TAB PO SCH ×2 (10:05→23:32)
[2023-07-12] MEDS: CALCIUM W/VIT D (600MG/400IU) TAB PO SCH (10:05)
[2023-07-12] MEDS: amLODIPine BESYLATE 5 MG TAB PO SCH (10:06)
[2023-07-12] MEDS: FUROSEMIDE 40 MG/4 ML VIAL IV SCH (10:06)
[2023-07-12 17:06] LABS: Vitamin D-3 25-Hydroxy 9.8 ng/mL (.)
[2023-07-12] MEDS: ATORVASTATIN 20 MG TAB PO SCH (23:31)
[2023-07-13 05:00] VITALS: BP 128/71; PULSE 73; RESP 19; TEMP 98.3; O2SAT 96
[2023-07-13] MEDS: LEVOTHYROXINE SODIUM 50 MCG TAB PO SCH (06:39)
[2023-07-13 06:54] LABS: Eosinophils # (auto) 0.2 10 ^3/uL (0-0.8); Lymphocytes % (auto) 19.2 % (10.0-50.0); White Blood Cell 4.4 10^3/uL (4.4-10.8)
[2023-07-13 06:58] LABS: Basophils # (auto) 0.1 10 ^3/uL (0-0.2); Basophils % (auto) 1.1 % (0.0-2.0); Hematocrit 23.7 % (41.0-53.0); Lymphocytes # (auto) 0.9 10 ^3/uL (0.4-5.4); Mean Corpuscular Hemoglobin 32.2 pg (28.0-32.0); Mean Corpuscular Hgb Conc. 33.6 g/dL (32.0-36.0); Mean Corpuscular Volume 96.1 fL (80.0-100.0); Monocytes # (auto) 0.3 10 ^3/uL (0-1.3); Monocytes % (auto) 6.9 % (0.0-12.0); Neutrophils % (auto) 67.8 % (37.0-80.0); Nucleated Red Blood Cells % 0.3 %; Red Blood Cells 2.47 10^6/uL (4.5-5.90); Red Cell Distribution Width 19.6 % (11.8-14.3)
[2023-07-13 07:06] LABS: Alanine Aminotransferase 13 U/L (7-40); Albumin 3.3 g/dL (3.2-4.8); Alkaline Phosphatase 46 U/L (46-116); Anion Gap 10 (5-15); Aspartate Aminotransferase 26 U/L (13-40); BUN/Creatinine Ratio 3.8 (10.0-20.0); Blood Urea Nitrogen 42 mg/dL (9-23); Calcium 7.9 mg/dL (8.7-10.4); Carbon Dioxide 24 mmol/L (20-30); Chloride 103 mmol/L (98-107); Glucose 79 mg/dL (74-106); Magnesium 2.3 mg/dL (1.6-2.6); Potassium 4.4 mmol/L (3.5-5.1); Sodium 137 mmol/L (136-145)
[2023-07-13 07:07] LABS: Bilirubin, Total 0.3 mg/dL (0.2-1.0)
[2023-07-13 08:00] VITALS: PULSE 75; RESP 18; O2SAT 94
[2023-07-13] MEDS: SEVELAMER 800 MG TAB PO SCH ×3 (08:12→18:26)
[2023-07-13] MEDS: METOPROLOL TARTRATE 25 MG TAB PO SCH ×2 (10:00→23:26)
[2023-07-13] MEDS: CALCIUM W/VIT D (600MG/400IU) TAB PO SCH (10:00)
[2023-07-13] MEDS: amLODIPine BESYLATE 5 MG TAB PO SCH (10:00)
[2023-07-13] MEDS: FUROSEMIDE 40 MG/4 ML VIAL IV SCH (10:00)
[2023-07-13 13:00] VITALS: BP 135/68; PULSE 81; RESP 18; TEMP 98.3; O2SAT 96
[2023-07-13 17:00] VITALS: BP 139/70; PULSE 80; RESP 18; TEMP 98.7; O2SAT 97
[2023-07-13 20:00] VITALS: BP 135/79; PULSE 79; RESP 18; TEMP 99; O2SAT 99
[2023-07-13] MEDS: ATORVASTATIN 20 MG TAB PO SCH (23:26)
[2023-07-14] VITALS (7 sets, daily range): BP systolic 116–151; BP diastolic 58–87; PULSE 70–83; RESP 16–18; TEMP 97.9–99.2; O2SAT 90–97
[2023-07-14 06:49] LABS: Basophils # (auto) 0.1 10 ^3/uL (0-0.2); Basophils % (auto) 1.1 % (0.0-2.0); Eosinophils # (auto) 0.2 10 ^3/uL (0-0.8); Hematocrit 23.5 % (41.0-53.0); Hemoglobin 7.8 g/dL (13.5-17.5); Monocytes # (auto) 0.3 10 ^3/uL (0-1.3); Nucleated Red Blood Cells % 0.2 %; White Blood Cell 4.7 10^3/uL (4.4-10.8)
[2023-07-14 06:52] LABS: Eosinophils % (auto) 3.9 % (0.0-7.0); Lymphocytes # (auto) 0.9 10 ^3/uL (0.4-5.4); Lymphocytes % (auto) 20.1 % (10.0-50.0); Mean Corpuscular Hemoglobin 31.4 pg (28.0-32.0); Monocytes % (auto) 7.2 % (0.0-12.0); Neutrophils # (auto) 3.2 10 ^3/uL (1.6-8.6); Neutrophils % (auto) 67.7 % (37.0-80.0); Red Blood Cells 2.48 10^6/uL (4.5-5.90); Red Cell Distribution Width 19.2 % (11.8-14.3)
[2023-07-14] MEDS: LEVOTHYROXINE SODIUM 50 MCG TAB PO SCH (07:00)
[2023-07-14 07:01] LABS: Anion Gap 8 (5-15); Calcium 7.5 mg/dL (8.7-10.4); Carbon Dioxide 28 mmol/L (20-30); Chloride 102 mmol/L (98-107); Potassium 4.2 mmol/L (3.5-5.1); Sodium 138 mmol/L (136-145)
[2023-07-14 07:07] LABS: BUN/Creatinine Ratio 3.8 (10.0-20.0); Blood Urea Nitrogen 34 mg/dL (9-23); Glucose 80 mg/dL (74-106); Magnesium 2.1 mg/dL (1.6-2.6)
[2023-07-14] MEDS: SEVELAMER 800 MG TAB PO SCH ×3 (08:12→18:05)
[2023-07-14] MEDS: FUROSEMIDE 40 MG/4 ML VIAL IV SCH (10:43)
[2023-07-14] MEDS: CALCIUM W/VIT D (600MG/400IU) TAB PO SCH (10:43)
[2023-07-14] MEDS: METOPROLOL TARTRATE 25 MG TAB PO SCH ×2 (10:44→23:14)
[2023-07-14] MEDS: amLODIPine BESYLATE 5 MG TAB PO SCH (10:44)
[2023-07-14] MEDS: HYDROcodone-ACET 10/325MG TAB PO PRN (13:24)
[2023-07-14] MEDS: ATORVASTATIN 20 MG TAB PO SCH (23:14)
[2023-07-15] VITALS (7 sets, daily range): BP systolic 118–139; BP diastolic 59–77; PULSE 69–77; RESP 17–18; TEMP 97.4–97.8; O2SAT 17–98
[2023-07-15] MEDS: HYDROcodone-ACET 10/325MG TAB PO PRN ×2 (02:37→21:13)
[2023-07-15 06:07] LABS: Basophils # (auto) 0 10 ^3/uL (0-0.2); Basophils % (auto) 0.9 % (0.0-2.0); Eosinophils # (auto) 0.2 10 ^3/uL (0-0.8); Hematocrit 24.8 % (41.0-53.0); Hemoglobin 8.1 g/dL (13.5-17.5); Lymphocytes % (auto) 18.8 % (10.0-50.0); Mean Corpuscular Hemoglobin 31.5 pg (28.0-32.0); Mean Corpuscular Hgb Conc. 32.6 g/dL (32.0-36.0); Mean Corpuscular Volume 96.5 fL (80.0-100.0); Monocytes # (auto) 0.3 10 ^3/uL (0-1.3); Monocytes % (auto) 6.2 % (0.0-12.0); Neutrophils # (auto) 3.6 10 ^3/uL (1.6-8.6); Neutrophils % (auto) 70.1 % (37.0-80.0); Nucleated Red Blood Cells % 0.2 %; Red Blood Cells 2.57 10^6/uL (4.5-5.90); Red Cell Distribution Width 19.3 % (11.8-14.3); White Blood Cell 5.2 10^3/uL (4.4-10.8)
[2023-07-15 06:30] LABS: Alanine Aminotransferase 10 U/L (7-40); Albumin 3.6 g/dL (3.2-4.8); Alkaline Phosphatase 48 U/L (46-116); Anion Gap 9 (5-15); Aspartate Aminotransferase 28 U/L (13-40); BUN/Creatinine Ratio 3.2 (10.0-20.0); Blood Urea Nitrogen 33 mg/dL (9-23); Calcium 8.2 mg/dL (8.7-10.4); Carbon Dioxide 26 mmol/L (20-30); Chloride 103 mmol/L (98-107); Glucose 78 mg/dL (74-106); Potassium 4.4 mmol/L (3.5-5.1); Sodium 138 mmol/L (136-145)
[2023-07-15 06:31] LABS: Bilirubin, Total 0.3 mg/dL (0.2-1.0); Total Protein 7.4 g/dL (5.7-8.2)
[2023-07-15] MEDS: LEVOTHYROXINE SODIUM 50 MCG TAB PO SCH (06:38)
[2023-07-15] MEDS: SEVELAMER 800 MG TAB PO SCH ×3 (08:03→17:56)
[2023-07-15] MEDS: CALCIUM W/VIT D (600MG/400IU) TAB PO SCH (10:11)
[2023-07-15] MEDS: amLODIPine BESYLATE 5 MG TAB PO SCH (10:11)
[2023-07-15] MEDS: METOPROLOL TARTRATE 25 MG TAB PO SCH ×2 (10:11→21:57)
[2023-07-15] MEDS: FUROSEMIDE 40 MG TAB PO SCH (10:11)
[2023-07-15] MEDS: ATORVASTATIN 20 MG TAB PO SCH (21:13)
[2023-07-16] VITALS (7 sets, daily range): BP systolic 108–136; BP diastolic 52–77; PULSE 72–78; RESP 16–19; TEMP 97.3–98.1; O2SAT 93–98
[2023-07-16 06:00] LABS: Monocytes # (auto) 0.3 10 ^3/uL (0-1.3)
[2023-07-16 06:03] LABS: Basophils # (auto) 0.1 10 ^3/uL (0-0.2); Basophils % (auto) 1.2 % (0.0-2.0); Eosinophils # (auto) 0.3 10 ^3/uL (0-0.8); Eosinophils % (auto) 5.9 % (0.0-7.0); Hematocrit 25.2 % (41.0-53.0); Hemoglobin 8.1 g/dL (13.5-17.5); Lymphocytes # (auto) 0.9 10 ^3/uL (0.4-5.4); Lymphocytes % (auto) 20.1 % (10.0-50.0); Mean Corpuscular Hemoglobin 31.6 pg (28.0-32.0); Mean Corpuscular Volume 98.8 fL (80.0-100.0); Monocytes % (auto) 7.2 % (0.0-12.0); Neutrophils # (auto) 2.8 10 ^3/uL (1.6-8.6); Neutrophils % (auto) 65.6 % (37.0-80.0); Nucleated Red Blood Cells % 0.1 %; Red Blood Cells 2.55 10^6/uL (4.5-5.90); Red Cell Distribution Width 18.9 % (11.8-14.3); White Blood Cell 4.3 10^3/uL (4.4-10.8)
[2023-07-16 06:09] LABS: Alanine Aminotransferase 11 U/L (7-40); Albumin 3.3 g/dL (3.2-4.8); Alkaline Phosphatase 47 U/L (46-116); Anion Gap 10 (5-15); Aspartate Aminotransferase 31 U/L (13-40); Blood Urea Nitrogen 33 mg/dL (9-23); Calcium 7.7 mg/dL (8.7-10.4); Carbon Dioxide 24 mmol/L (20-30); Chloride 102 mmol/L (98-107); Glucose 66 mg/dL (74-106); Magnesium 2.5 mg/dL (1.6-2.6); Potassium 4.7 mmol/L (3.5-5.1); Sodium 136 mmol/L (136-145)
[2023-07-16 06:10] LABS: Bilirubin, Total 0.3 mg/dL (0.2-1.0); Total Protein 6.9 g/dL (5.7-8.2)
[2023-07-16 06:30] LABS: BUN/Creatinine Ratio 2.9 (10.0-20.0)
[2023-07-16] MEDS: LEVOTHYROXINE SODIUM 50 MCG TAB PO SCH (06:47)
[2023-07-16] MEDS ORDERED: SODIUM CHL 0.9% 1000 ML BAG XX ONE (07:00)
[2023-07-16] MEDS: SEVELAMER 800 MG TAB PO SCH ×3 (07:23→18:21)
[2023-07-16 09:12] LABS: Platelet Estimate Decreased
[2023-07-16 09:13] LABS: Giant Platelets Few
[2023-07-16 09:14] LABS: RBC Morphology Normal
[2023-07-16] MEDS: CALCIUM W/VIT D (600MG/400IU) TAB PO SCH (09:41)
[2023-07-16] MEDS: amLODIPine BESYLATE 5 MG TAB PO SCH (09:41)
[2023-07-16] MEDS: FUROSEMIDE 40 MG TAB PO SCH (09:41)
[2023-07-16] MEDS: METOPROLOL TARTRATE 25 MG TAB PO SCH ×2 (09:41→21:41)
[2023-07-16] MEDS ORDERED: EPOETIN ALFA-EPBX 10,000 UNIT/1ML VIAL SC ONE (21:00)
[2023-07-16] MEDS: ATORVASTATIN 20 MG TAB PO SCH (21:38)
[2023-07-17] VITALS (7 sets, daily range): BP systolic 123–138; BP diastolic 64–82; PULSE 78–88; RESP 17–94; TEMP 98–98.8; O2SAT 94–100
[2023-07-17 05:47] LABS: Anion Gap 6 (5-15); Carbon Dioxide 30 mmol/L (20-30); Chloride 102 mmol/L (98-107); Potassium 4.7 mmol/L (3.5-5.1); Sodium 138 mmol/L (136-145)
[2023-07-17 05:49] LABS: Calcium 7.9 mg/dL (8.5-10.1)
[2023-07-17 05:50] LABS: Basophils # (auto) 0.1 10 ^3/uL (0-0.2); Basophils % (auto) 1.5 % (0.0-2.0); Eosinophils # (auto) 0.2 10 ^3/uL (0-0.8); Eosinophils % (auto) 3.8 % (0.0-7.0); Hematocrit 25.6 % (41.0-53.0); Hemoglobin 8.5 g/dL (13.5-17.5); Lymphocytes % (auto) 22.9 % (10.0-50.0); Mean Corpuscular Hemoglobin 31.8 pg (28.0-32.0); Mean Corpuscular Hgb Conc. 33.1 g/dL (32.0-36.0); Mean Corpuscular Volume 96.2 fL (80.0-100.0); Monocytes # (auto) 0.4 10 ^3/uL (0-1.3); Monocytes % (auto) 9.6 % (0.0-12.0); Neutrophils # (auto) 2.6 10 ^3/uL (1.6-8.6); Neutrophils % (auto) 62.2 % (37.0-80.0); Nucleated Red Blood Cells % 0.2 %; Red Blood Cells 2.66 10^6/uL (4.5-5.90); White Blood Cell 4.3 10^3/uL (4.4-10.8)
[2023-07-17 05:53] LABS: Glucose 71 mg/dL (74-106)
[2023-07-17 05:54] LABS: BUN/Creatinine Ratio 3.3 (10.0-20.0); Blood Urea Nitrogen 31 mg/dL (9-23)
[2023-07-17] MEDS: LEVOTHYROXINE SODIUM 50 MCG TAB PO SCH (06:11)
[2023-07-17 07:04] LABS: Anisocytosis Slight; Platelet Estimate Decreased
[2023-07-17] MEDS: SEVELAMER 800 MG TAB PO SCH ×3 (08:04→18:11)
[2023-07-17] MEDS: CALCIUM W/VIT D (600MG/400IU) TAB PO SCH (10:05)
[2023-07-17] MEDS: METOPROLOL TARTRATE 25 MG TAB PO SCH ×2 (10:06→22:22)
[2023-07-17] MEDS: FUROSEMIDE 40 MG TAB PO SCH (10:07)
[2023-07-17] MEDS: amLODIPine BESYLATE 5 MG TAB PO SCH (10:07)
[2023-07-17] MEDS: ATORVASTATIN 20 MG TAB PO SCH (22:20)
[2023-07-18 05:00] VITALS: BP 125/70; PULSE 78; RESP 17; TEMP 98.2; O2SAT 96
[2023-07-18] MEDS: LEVOTHYROXINE SODIUM 50 MCG TAB PO SCH (06:21)
[2023-07-18 06:46] LABS: Lymphocytes # (auto) 1.1 10 ^3/uL (0.4-5.4); Lymphocytes % (auto) 26.4 % (10.0-50.0); Mean Corpuscular Hemoglobin 30.9 pg (28.0-32.0); Mean Corpuscular Hgb Conc. 32.7 g/dL (32.0-36.0); Monocytes # (auto) 0.4 10 ^3/uL (0-1.3); Monocytes % (auto) 10.2 % (0.0-12.0); Neutrophils # (auto) 2.4 10 ^3/uL (1.6-8.6); Red Blood Cells 2.54 10^6/uL (4.5-5.90)
[2023-07-18 06:48] LABS: Basophils # (auto) 0 10 ^3/uL (0-0.2); Basophils % (auto) 1.1 % (0.0-2.0); Eosinophils # (auto) 0.1 10 ^3/uL (0-0.8); Eosinophils % (auto) 3.4 % (0.0-7.0); Mean Corpuscular Volume 94.4 fL (80.0-100.0); Neutrophils % (auto) 58.9 % (37.0-80.0); Red Cell Distribution Width 18.1 % (11.8-14.3); White Blood Cell 4.1 10^3/uL (4.4-10.8)
[2023-07-18 06:53] LABS: Calcium 7.5 mg/dL (8.7-10.4); Carbon Dioxide 28 mmol/L (20-30); Chloride 102 mmol/L (98-107); Potassium 4.6 mmol/L (3.5-5.1)
[2023-07-18 06:54] LABS: Anion Gap 8 (5-15); Sodium 138 mmol/L (136-145)
[2023-07-18 07:00] LABS: BUN/Creatinine Ratio 3.8 (10.0-20.0); Blood Urea Nitrogen 42 mg/dL (9-23); Glucose 87 mg/dL (74-106)
[2023-07-18 07:17] LABS: Hemoglobin 7.8 g/dL (13.5-17.5)
[2023-07-18 08:00] VITALS: RESP 19; O2SAT 98
[2023-07-18] MEDS: SEVELAMER 800 MG TAB PO SCH ×3 (08:59→18:45)
[2023-07-18] MEDS: amLODIPine BESYLATE 5 MG TAB PO SCH (10:00)
[2023-07-18] MEDS: FUROSEMIDE 40 MG TAB PO SCH (10:00)
[2023-07-18] MEDS: CALCIUM W/VIT D (600MG/400IU) TAB PO SCH (10:00)
[2023-07-18] MEDS: METOPROLOL TARTRATE 25 MG TAB PO SCH ×2 (10:00→21:38)
[2023-07-18 10:15] VITALS: BP 135/69; PULSE 81; RESP 19; TEMP 97.6; O2SAT 99
[2023-07-18 13:15] VITALS: BP 104/55; PULSE 86; RESP 17; TEMP 98.2; O2SAT 94
[2023-07-18 17:17] VITALS: BP 118/72; PULSE 92; RESP 18; TEMP 98.1; O2SAT 98
[2023-07-18 20:00] VITALS: BP 150/77; PULSE 85; RESP 20; TEMP 97.9; O2SAT 100
[2023-07-18] MEDS: ATORVASTATIN 20 MG TAB PO SCH (21:35)
[2023-07-19 04:50] VITALS: BP 118/65; PULSE 83; RESP 20; TEMP 98.1; O2SAT 93
[2023-07-19 06:02] LABS: Basophils # (auto) 0.1 10 ^3/uL (0-0.2); Basophils % (auto) 1.4 % (0.0-2.0); Eosinophils # (auto) 0.2 10 ^3/uL (0-0.8); Hematocrit 24.2 % (41.0-53.0); Hemoglobin 7.9 g/dL (13.5-17.5); Lymphocytes # (auto) 0.9 10 ^3/uL (0.4-5.4); Mean Corpuscular Hgb Conc. 32.5 g/dL (32.0-36.0); Monocytes # (auto) 0.4 10 ^3/uL (0-1.3)
[2023-07-19 06:10] LABS: Eosinophils % (auto) 4.2 % (0.0-7.0); Lymphocytes % (auto) 22.6 % (10.0-50.0); Mean Corpuscular Hemoglobin 30.8 pg (28.0-32.0); Mean Corpuscular Volume 94.7 fL (80.0-100.0); Monocytes % (auto) 10.3 % (0.0-12.0); Neutrophils # (auto) 2.5 10 ^3/uL (1.6-8.6); Neutrophils % (auto) 61.5 % (37.0-80.0); Nucleated Red Blood Cells % 0.1 %; Red Blood Cells 2.56 10^6/uL (4.5-5.90); Red Cell Distribution Width 18.6 % (11.8-14.3)
[2023-07-19] MEDS: LEVOTHYROXINE SODIUM 50 MCG TAB PO SCH (06:24)
[2023-07-19 06:32] LABS: Anion Gap 7 (5-15); Carbon Dioxide 28 mmol/L (20-30); Chloride 105 mmol/L (98-107); Potassium 4.6 mmol/L (3.5-5.1); Sodium 140 mmol/L (136-145)
[2023-07-19 06:33] LABS: Calcium 7.9 mg/dL (8.5-10.1)
[2023-07-19 06:38] LABS: BUN/Creatinine Ratio 3.6 (10.0-20.0); Blood Urea Nitrogen 33 mg/dL (9-23); Glucose 84 mg/dL (74-106)
[2023-07-19 06:51] LABS: Anisocytosis Slight; Platelet Estimate Decreased
[2023-07-19 07:40] VITALS: BP 124/64; PULSE 80; RESP 16; TEMP 98.3; O2SAT 94
[2023-07-19] MEDS: FUROSEMIDE 40 MG TAB PO SCH (10:12)
[2023-07-19] MEDS: SEVELAMER 800 MG TAB PO SCH ×3 (10:12→17:40)
[2023-07-19] MEDS: amLODIPine BESYLATE 5 MG TAB PO SCH (10:13)
[2023-07-19] MEDS: CALCIUM W/VIT D (600MG/400IU) TAB PO SCH (10:13)
[2023-07-19] MEDS: METOPROLOL TARTRATE 25 MG TAB PO SCH ×2 (10:13→22:00)
[2023-07-19 11:46] VITALS: BP 123/67; PULSE 80; RESP 16; TEMP 98.4; O2SAT 96
[2023-07-19 16:39] VITALS: BP 155/69; PULSE 86; RESP 17; TEMP 98.6; O2SAT 98
[2023-07-19 22:00] VITALS: BP 142/75; PULSE 82; RESP 18; TEMP 98.5; O2SAT 97
[2023-07-19] MEDS: HYDROcodone-ACET 10/325MG TAB PO PRN (22:00)
[2023-07-19] MEDS: ATORVASTATIN 20 MG TAB PO SCH (22:00)
[2023-07-20] MEDS: LEVOTHYROXINE SODIUM 50 MCG TAB PO SCH (06:49)
[2023-07-20 07:00] LABS: Basophils # (auto) 0.1 10 ^3/uL (0-0.2); Eosinophils # (auto) 0.2 10 ^3/uL (0-0.8); Hematocrit 23.4 % (41.0-53.0); Hemoglobin 7.7 g/dL (13.5-17.5); Monocytes # (auto) 0.4 10 ^3/uL (0-1.3); Red Cell Distribution Width 18.4 % (11.8-14.3); White Blood Cell 3.6 10^3/uL (4.4-10.8)
[2023-07-20 07:02] LABS: Basophils % (auto) 1.8 % (0.0-2.0); Eosinophils % (auto) 4.8 % (0.0-7.0); Lymphocytes % (auto) 27.7 % (10.0-50.0); Mean Corpuscular Hemoglobin 31.1 pg (28.0-32.0); Mean Corpuscular Hgb Conc. 32.7 g/dL (32.0-36.0); Mean Corpuscular Volume 95.3 fL (80.0-100.0); Monocytes % (auto) 10.4 % (0.0-12.0); Neutrophils % (auto) 55.3 % (37.0-80.0); Nucleated Red Blood Cells % 0.2 %; Red Blood Cells 2.46 10^6/uL (4.5-5.90)
[2023-07-20 07:07] LABS: Chloride 105 mmol/L (98-107); Potassium 4.7 mmol/L (3.5-5.1); Sodium 140 mmol/L (136-145)
[2023-07-20 07:08] LABS: Anion Gap 7 (5-15); Carbon Dioxide 28 mmol/L (20-30)
[2023-07-20 07:09] LABS: Calcium 7.5 mg/dL (8.7-10.4)
[2023-07-20 07:13] LABS: BUN/Creatinine Ratio 4.5 (10.0-20.0); Glucose 83 mg/dL (74-106)
[2023-07-20 07:30] LABS: Blood Urea Nitrogen 47 mg/dL (9-23)
[2023-07-20] MEDS: SEVELAMER 800 MG TAB PO SCH ×3 (08:00→16:45)
[2023-07-20 08:06] LABS: Immunoglobulin A 410 mg/dL (61-437); Immunoglobulin G, Serum 2017 mg/dL (603-1613); Immunoglobulin M 70 mg/dL (20-172)
[2023-07-20 08:47] VITALS: BP 109/90; PULSE 77; RESP 16; TEMP 98.1; O2SAT 98
[2023-07-20 09:31] LABS: Platelet Estimate Decreased
[2023-07-20 09:32] LABS: Ovalocytes MODERATE
[2023-07-20] MEDS: CALCIUM W/VIT D (600MG/400IU) TAB PO SCH (10:33)
[2023-07-20] MEDS: FUROSEMIDE 40 MG TAB PO SCH (10:33)
[2023-07-20] MEDS: amLODIPine BESYLATE 5 MG TAB PO SCH (10:36)
[2023-07-20] MEDS: METOPROLOL TARTRATE 25 MG TAB PO SCH ×2 (10:38→22:19)
[2023-07-20 11:07] LABS: Anti-Nuclear Antibody Direct Negative (Negative)
[2023-07-20 13:14] VITALS: BP 115/51; PULSE 82; RESP 17; TEMP 98.8; O2SAT 95
[2023-07-20 16:49] VITALS: BP 121/67; PULSE 76; RESP 18; TEMP 98; O2SAT 99
[2023-07-20] MEDS: HYDROcodone-ACET 10/325MG TAB PO PRN (19:55)
[2023-07-20 20:00] VITALS: PULSE 88; RESP 20; O2SAT 95
[2023-07-20 22:00] VITALS: BP 133/67; PULSE 88; RESP 19; TEMP 98.2; O2SAT 95
[2023-07-20] MEDS: ATORVASTATIN 20 MG TAB PO SCH (22:18)
[2023-07-21] VITALS (7 sets, daily range): BP systolic 131–141; BP diastolic 62–80; PULSE 74–86; RESP 16–20; TEMP 97.8–98.3; O2SAT 94–97
[2023-07-21 06:31] LABS: Basophils # (auto) 0.1 10 ^3/uL (0-0.2); Eosinophils # (auto) 0.2 10 ^3/uL (0-0.8); Lymphocytes # (auto) 1.2 10 ^3/uL (0.4-5.4); Mean Corpuscular Hemoglobin 31.2 pg (28.0-32.0); Neutrophils # (auto) 2.1 10 ^3/uL (1.6-8.6); White Blood Cell 3.9 10^3/uL (4.4-10.8)
[2023-07-21 06:33] LABS: Basophils % (auto) 2.1 % (0.0-2.0); Hematocrit 25.5 % (41.0-53.0); Hemoglobin 8.2 g/dL (13.5-17.5); Mean Corpuscular Volume 97.5 fL (80.0-100.0); Monocytes # (auto) 0.3 10 ^3/uL (0-1.3); Monocytes % (auto) 8.9 % (0.0-12.0); Red Blood Cells 2.62 10^6/uL (4.5-5.90); Red Cell Distribution Width 18.2 % (11.8-14.3)
[2023-07-21 06:36] LABS: Anion Gap 8 (5-15); Carbon Dioxide 25 mmol/L (20-30); Chloride 104 mmol/L (98-107); Potassium 5.5 mmol/L (3.5-5.1); Sodium 137 mmol/L (136-145)
[2023-07-21 06:37] LABS: Calcium 7.2 mg/dL (8.7-10.4)
[2023-07-21 06:42] LABS: BUN/Creatinine Ratio 5.2 (10.0-20.0); Blood Urea Nitrogen 61 mg/dL (9-23); Glucose 80 mg/dL (74-106)
[2023-07-21 06:48] LABS: Magnesium 2.3 mg/dL (1.6-2.6)
[2023-07-21] MEDS ORDERED: SODIUM ZIRCONIUM CYCL 10 GM PAK PO ONE (07:45)
[2023-07-21] MEDS: LEVOTHYROXINE SODIUM 50 MCG TAB PO SCH (07:46)
[2023-07-21] MEDS: SEVELAMER 800 MG TAB PO SCH ×3 (08:25→17:59)
[2023-07-21] MEDS: METOPROLOL TARTRATE 25 MG TAB PO SCH ×2 (10:29→22:19)
[2023-07-21] MEDS: FUROSEMIDE 40 MG TAB PO SCH (10:30)
[2023-07-21] MEDS: CALCIUM W/VIT D (600MG/400IU) TAB PO SCH (10:30)
[2023-07-21] MEDS: amLODIPine BESYLATE 5 MG TAB PO SCH (10:30)
[2023-07-21] MEDS: HYDROcodone-ACET 10/325MG TAB PO PRN (14:17)
[2023-07-21 15:07] LABS: CCP IgG/IgA Antibody 82 units (0-19)
[2023-07-21] MEDS: ATORVASTATIN 20 MG TAB PO SCH (22:19)
[2023-07-22 05:00] VITALS: BP 128/63; PULSE 76; RESP 20; TEMP 98; O2SAT 100
[2023-07-22] MEDS: LEVOTHYROXINE SODIUM 50 MCG TAB PO SCH (06:36)
[2023-07-22] MEDS: SEVELAMER 800 MG TAB PO SCH ×3 (07:59→18:56)
[2023-07-22 08:00] VITALS: PULSE 79; RESP 16; O2SAT 97
[2023-07-22 09:00] VITALS: BP 129/71; PULSE 79; RESP 16; TEMP 97.8; O2SAT 97
[2023-07-22] MEDS: amLODIPine BESYLATE 5 MG TAB PO SCH (10:04)
[2023-07-22] MEDS: DOCUSATE SOD 100 MG CAP PO PRN (10:04)
[2023-07-22] MEDS: HYDROcodone-ACET 10/325MG TAB PO PRN (10:04)
[2023-07-22] MEDS: FUROSEMIDE 40 MG TAB PO SCH (10:04)
[2023-07-22] MEDS: CALCIUM W/VIT D (600MG/400IU) TAB PO SCH (10:04)
[2023-07-22] MEDS: METOPROLOL TARTRATE 25 MG TAB PO SCH ×2 (10:05→22:15)
[2023-07-22 11:17] LABS: Basophils # (auto) 0.1 10 ^3/uL (0-0.2); Eosinophils # (auto) 0.2 10 ^3/uL (0-0.8); Lymphocytes # (auto) 0.9 10 ^3/uL (0.4-5.4); Neutrophils # (auto) 2.1 10 ^3/uL (1.6-8.6)
[2023-07-22 11:22] LABS: Eosinophils % (auto) 6.5 % (0.0-7.0); Hematocrit 25.4 % (41.0-53.0); Hemoglobin 8.2 g/dL (13.5-17.5); Lymphocytes % (auto) 24.1 % (10.0-50.0); Mean Corpuscular Hemoglobin 31.1 pg (28.0-32.0); Mean Corpuscular Hgb Conc. 32.3 g/dL (32.0-36.0); Mean Corpuscular Volume 96.4 fL (80.0-100.0); Monocytes # (auto) 0.4 10 ^3/uL (0-1.3); Monocytes % (auto) 10.7 % (0.0-12.0); Neutrophils % (auto) 56.7 % (37.0-80.0); Red Blood Cells 2.64 10^6/uL (4.5-5.90); Red Cell Distribution Width 18.1 % (11.8-14.3); White Blood Cell 3.7 10^3/uL (4.4-10.8)
[2023-07-22 11:36] LABS: Alanine Aminotransferase 19 U/L (7-40); Albumin 3.4 g/dL (3.2-4.8); Alkaline Phosphatase 45 U/L (46-116); Anion Gap 5 (5-15); Aspartate Aminotransferase 30 U/L (13-40); BUN/Creatinine Ratio 3.7 (10.0-20.0); Calcium 8.1 mg/dL (8.5-10.1); Carbon Dioxide 30 mmol/L (20-30); Chloride 104 mmol/L (98-107); Glucose 107 mg/dL (74-106); Potassium 4.8 mmol/L (3.5-5.1); Sodium 139 mmol/L (136-145)
[2023-07-22 11:37] LABS: Blood Urea Nitrogen 37 mg/dL (9-23)
[2023-07-22 11:38] LABS: Bilirubin, Total 0.4 mg/dL (0.2-1.0); Total Protein 7.1 g/dL (5.7-8.2)
[2023-07-22 13:00] VITALS: BP 116/67; PULSE 77; RESP 17; TEMP 97.7; O2SAT 96
[2023-07-22 17:00] VITALS: BP 122/69; PULSE 75; RESP 16; TEMP 98.3; O2SAT 95
[2023-07-22 22:00] VITALS: BP 144/81; PULSE 76; RESP 19; TEMP 97.4; O2SAT 94
[2023-07-22] MEDS: ATORVASTATIN 20 MG TAB PO SCH (22:15)
[2023-07-23] VITALS (7 sets, daily range): BP systolic 126–142; BP diastolic 68–84; PULSE 74–78; RESP 16–19; TEMP 97.6–98.2; O2SAT 95–97
[2023-07-23] MEDS: LEVOTHYROXINE SODIUM 50 MCG TAB PO SCH (06:24)
[2023-07-23] MEDS: SEVELAMER 800 MG TAB PO SCH ×3 (08:00→18:06)
[2023-07-23 11:40] LABS: Basophils # (auto) 0 10 ^3/uL (0-0.2); Basophils % (auto) 0.9 % (0.0-2.0); Eosinophils # (auto) 0.3 10 ^3/uL (0-0.8); Eosinophils % (auto) 6.1 % (0.0-7.0); Hematocrit 29.6 % (41.0-53.0); Hemoglobin 9.4 g/dL (13.5-17.5); Lymphocytes # (auto) 1.1 10 ^3/uL (0.4-5.4); Lymphocytes % (auto) 25.5 % (10.0-50.0); Mean Corpuscular Hemoglobin 30.8 pg (28.0-32.0); Mean Corpuscular Hgb Conc. 31.7 g/dL (32.0-36.0); Mean Corpuscular Volume 97.4 fL (80.0-100.0); Monocytes # (auto) 0.3 10 ^3/uL (0-1.3); Monocytes % (auto) 8.1 % (0.0-12.0); Neutrophils # (auto) 2.5 10 ^3/uL (1.6-8.6); Neutrophils % (auto) 59.4 % (37.0-80.0); Nucleated Red Blood Cells % 0.1 %; Red Blood Cells 3.04 10^6/uL (4.5-5.90); Red Cell Distribution Width 17.9 % (11.8-14.3); White Blood Cell 4.2 10^3/uL (4.4-10.8)
[2023-07-23 11:42] LABS: Chloride 102 mmol/L (98-107); Sodium 136 mmol/L (136-145)
[2023-07-23 11:43] LABS: Anion Gap 6 (5-15); Carbon Dioxide 28 mmol/L (20-30)
[2023-07-23 11:44] LABS: Calcium 8.3 mg/dL (8.7-10.4)
[2023-07-23 11:48] LABS: Glucose 117 mg/dL (74-106)
[2023-07-23 11:49] LABS: BUN/Creatinine Ratio 3.8 (10.0-20.0); Blood Urea Nitrogen 42 mg/dL (9-23); Magnesium 2.4 mg/dL (1.6-2.6)
[2023-07-23 12:25] LABS: Platelet Estimate Decreased
[2023-07-23] MEDS: CALCIUM W/VIT D (600MG/400IU) TAB PO SCH (12:52)
[2023-07-23] MEDS: amLODIPine BESYLATE 5 MG TAB PO SCH (12:53)
[2023-07-23] MEDS: FUROSEMIDE 40 MG TAB PO SCH (12:54)
[2023-07-23] MEDS: METOPROLOL TARTRATE 25 MG TAB PO SCH ×2 (12:55→21:36)
[2023-07-23] MEDS: ATORVASTATIN 20 MG TAB PO SCH (21:36)
[2023-07-24 05:00] VITALS: BP 110/59; PULSE 78; RESP 19; TEMP 98; O2SAT 93
[2023-07-24] MEDS: LEVOTHYROXINE SODIUM 50 MCG TAB PO SCH (05:56)
[2023-07-24 06:48] LABS: Anion Gap 8 (5-15); Calcium 8.5 mg/dL (8.5-10.1); Carbon Dioxide 27 mmol/L (20-30); Chloride 102 mmol/L (98-107); Potassium 5.4 mmol/L (3.5-5.1); Sodium 137 mmol/L (136-145)
[2023-07-24 06:54] LABS: BUN/Creatinine Ratio 4.5 (10.0-20.0); Blood Urea Nitrogen 55 mg/dL (9-23); Glucose 76 mg/dL (74-106)
[2023-07-24] MEDS ORDERED: SODIUM CHL 0.9% 1000 ML BAG XX ONE (07:00)
[2023-07-24 07:12] LABS: Basophils # (auto) 0.1 10 ^3/uL (0-0.2); Basophils % (auto) 2.9 % (0.0-2.0); Eosinophils # (auto) 0.2 10 ^3/uL (0-0.8); Eosinophils % (auto) 5.9 % (0.0-7.0); Hematocrit 26.7 % (41.0-53.0); Hemoglobin 8.5 g/dL (13.5-17.5); Lymphocytes # (auto) 1.1 10 ^3/uL (0.4-5.4); Lymphocytes % (auto) 25.5 % (10.0-50.0); Mean Corpuscular Hemoglobin 29.7 pg (28.0-32.0); Mean Corpuscular Hgb Conc. 31.9 g/dL (32.0-36.0); Mean Corpuscular Volume 93.1 fL (80.0-100.0); Monocytes # (auto) 0.4 10 ^3/uL (0-1.3); Monocytes % (auto) 9.3 % (0.0-12.0); Neutrophils # (auto) 2.3 10 ^3/uL (1.6-8.6); Neutrophils % (auto) 56.4 % (37.0-80.0); Nucleated Red Blood Cells % 0.1 %; Red Blood Cells 2.86 10^6/uL (4.5-5.90); Red Cell Distribution Width 17.6 % (11.8-14.3); White Blood Cell 4.1 10^3/uL (4.4-10.8)
[2023-07-24 08:00] VITALS: PULSE 82; RESP 20; O2SAT 94
[2023-07-24 09:00] VITALS: BP 133/73; PULSE 82; RESP 20; TEMP 97.6; O2SAT 94
[2023-07-24] MEDS: SEVELAMER 800 MG TAB PO SCH ×3 (09:44→18:45)
[2023-07-24] MEDS: CALCIUM W/VIT D (600MG/400IU) TAB PO SCH (09:44)
[2023-07-24] MEDS: amLODIPine BESYLATE 5 MG TAB PO SCH (09:45)
[2023-07-24] MEDS: METOPROLOL TARTRATE 25 MG TAB PO SCH ×2 (09:45→23:06)
[2023-07-24] MEDS: FUROSEMIDE 40 MG TAB PO SCH (09:45)
[2023-07-24] MEDS: HYDROcodone-ACET 10/325MG TAB PO PRN (09:55)
[2023-07-24] MEDS: Glucerna Carbsteady SHAKE Vanilla 8oz PO SCH ×2 (12:00→18:46)
[2023-07-24 13:00] VITALS: PULSE 78; RESP 18; TEMP 97.9; O2SAT 99
[2023-07-24 18:06] LABS: Methylmalonic Acid 450 nmol/L (0-378)
[2023-07-24 20:00] VITALS: PULSE 70; RESP 20; O2SAT 94
[2023-07-24] MEDS ORDERED: EPOETIN ALFA-EPBX 10,000 UNIT/1ML VIAL SC ONE (21:00)
[2023-07-24 22:00] VITALS: BP 137/71; PULSE 82; RESP 19; TEMP 97.7; O2SAT 93
[2023-07-24] MEDS: ATORVASTATIN 20 MG TAB PO SCH (23:05)
[2023-07-25] VITALS (7 sets, daily range): BP systolic 109–127; BP diastolic 59–70; PULSE 75–82; RESP 18–20; TEMP 97.5–98.5; O2SAT 94–99
[2023-07-25] MEDS: LEVOTHYROXINE SODIUM 50 MCG TAB PO SCH (06:31)
[2023-07-25 06:34] LABS: Chloride 100 mmol/L (98-107); Potassium 4.7 mmol/L (3.5-5.1); Sodium 134 mmol/L (136-145)
[2023-07-25 06:35] LABS: Anion Gap 6 (5-15); Carbon Dioxide 28 mmol/L (20-30)
[2023-07-25 06:40] LABS: BUN/Creatinine Ratio 3.4 (10.0-20.0); Glucose 83 mg/dL (74-106)
[2023-07-25 06:41] LABS: Basophils # (auto) 0.1 10 ^3/uL (0-0.2); Eosinophils # (auto) 0.2 10 ^3/uL (0-0.8); Magnesium 2.4 mg/dL (1.6-2.6); Nucleated Red Blood Cells % 0.1 %
[2023-07-25 06:45] LABS: Basophils % (auto) 2.3 % (0.0-2.0); Eosinophils % (auto) 6.7 % (0.0-7.0); Hematocrit 24.5 % (41.0-53.0); Hemoglobin 8.1 g/dL (13.5-17.5); Lymphocytes % (auto) 29.6 % (10.0-50.0); Mean Corpuscular Hemoglobin 32.4 pg (28.0-32.0); Mean Corpuscular Hgb Conc. 33.2 g/dL (32.0-36.0); Mean Corpuscular Volume 97.6 fL (80.0-100.0); Monocytes # (auto) 0.3 10 ^3/uL (0-1.3); Monocytes % (auto) 10.8 % (0.0-12.0); Neutrophils # (auto) 1.6 10 ^3/uL (1.6-8.6); Neutrophils % (auto) 50.6 % (37.0-80.0); Red Blood Cells 2.51 10^6/uL (4.5-5.90); Red Cell Distribution Width 16.6 % (11.8-14.3); White Blood Cell 3.2 10^3/uL (4.4-10.8)
[2023-07-25 06:47] LABS: Blood Urea Nitrogen 31 mg/dL (9-23)
[2023-07-25 07:24] LABS: Anisocytosis Slight; Hypochromia Slight; Platelet Estimate Decreased
[2023-07-25] MEDS: Glucerna Carbsteady SHAKE Vanilla 8oz PO SCH ×3 (08:00→18:16)
[2023-07-25] MEDS: METOPROLOL TARTRATE 25 MG TAB PO SCH ×2 (09:25→21:30)
[2023-07-25] MEDS: FUROSEMIDE 40 MG TAB PO SCH (09:25)
[2023-07-25] MEDS: SEVELAMER 800 MG TAB PO SCH ×3 (09:25→17:58)
[2023-07-25] MEDS: CALCIUM W/VIT D (600MG/400IU) TAB PO SCH (09:25)
[2023-07-25] MEDS: amLODIPine BESYLATE 5 MG TAB PO SCH (09:26)
[2023-07-25] MEDS: ATORVASTATIN 20 MG TAB PO SCH (21:29)
[2023-07-26] VITALS (7 sets, daily range): BP systolic 108–131; BP diastolic 59–79; PULSE 78–85; RESP 16–22; TEMP 98–98.3; O2SAT 94–98
[2023-07-26] MEDS: LEVOTHYROXINE SODIUM 50 MCG TAB PO SCH (06:14)
[2023-07-26] MEDS: Glucerna Carbsteady SHAKE Vanilla 8oz PO SCH ×3 (08:00→17:23)
[2023-07-26] MEDS: FUROSEMIDE 40 MG TAB PO SCH (08:56)
[2023-07-26] MEDS: SEVELAMER 800 MG TAB PO SCH ×3 (08:56→17:23)
[2023-07-26] MEDS: CALCIUM W/VIT D (600MG/400IU) TAB PO SCH (08:56)
[2023-07-26] MEDS: HYDROcodone-ACET 10/325MG TAB PO PRN (08:57)
[2023-07-26] MEDS: METOPROLOL TARTRATE 25 MG TAB PO SCH ×2 (08:57→22:05)
[2023-07-26] MEDS: amLODIPine BESYLATE 5 MG TAB PO SCH (08:57)
[2023-07-26 17:13] LABS: Chloride 100 mmol/L (98-107); Potassium 5.1 mmol/L (3.5-5.1); Sodium 135 mmol/L (136-145)
[2023-07-26 17:14] LABS: Anion Gap 8 (5-15); Calcium 8.6 mg/dL (8.5-10.1); Carbon Dioxide 27 mmol/L (20-30)
[2023-07-26 17:19] LABS: BUN/Creatinine Ratio 4.7 (10.0-20.0); Glucose 115 mg/dL (74-106)
[2023-07-26 18:04] LABS: Blood Urea Nitrogen 53 mg/dL (9-23)
[2023-07-26] MEDS ORDERED: HYDROcodone-ACET 10/325MG TAB PO PRN (19:30)
[2023-07-26] MEDS: ATORVASTATIN 20 MG TAB PO SCH (22:03)
[2023-07-27 05:00] VITALS: BP 116/69; PULSE 79; RESP 18; TEMP 98; O2SAT 96
[2023-07-27] MEDS: LEVOTHYROXINE SODIUM 50 MCG TAB PO SCH (06:36)
[2023-07-27 07:08] LABS: Eosinophils # (auto) 0.2 10 ^3/uL (0-0.8); Hemoglobin 8.2 g/dL (13.5-17.5); Monocytes # (auto) 0.4 10 ^3/uL (0-1.3); Neutrophils # (auto) 2.3 10 ^3/uL (1.6-8.6)
[2023-07-27 07:09] LABS: Chloride 101 mmol/L (98-107); Potassium 4.6 mmol/L (3.5-5.1); Sodium 135 mmol/L (136-145)
[2023-07-27 07:10] LABS: Anion Gap 5 (5-15); Carbon Dioxide 29 mmol/L (20-30)
[2023-07-27 07:11] LABS: Basophils # (auto) 0 10 ^3/uL (0-0.2); Basophils % (auto) 1.2 % (0.0-2.0); Eosinophils % (auto) 4.7 % (0.0-7.0); Hematocrit 24.7 % (41.0-53.0); Lymphocytes % (auto) 25.2 % (10.0-50.0); Mean Corpuscular Hemoglobin 31.4 pg (28.0-32.0); Mean Corpuscular Hgb Conc. 33.3 g/dL (32.0-36.0); Mean Corpuscular Volume 94.4 fL (80.0-100.0); Monocytes % (auto) 10.9 % (0.0-12.0); Nucleated Red Blood Cells % 0.1 %; Red Blood Cells 2.62 10^6/uL (4.5-5.90); Red Cell Distribution Width 16.5 % (11.8-14.3); White Blood Cell 3.9 10^3/uL (4.4-10.8)
[2023-07-27 07:15] LABS: BUN/Creatinine Ratio 3.6 (10.0-20.0); Glucose 69 mg/dL (74-106)
[2023-07-27 07:16] LABS: Magnesium 2.3 mg/dL (1.6-2.6)
[2023-07-27 07:26] LABS: Blood Urea Nitrogen 30 mg/dL (9-23)
[2023-07-27 07:30] VITALS: BP 124/62; PULSE 76; TEMP 36.7
[2023-07-27 08:59] LABS: Platelet Estimate Decreased
[2023-07-27] MEDS: SEVELAMER 800 MG TAB PO SCH ×2 (10:08→13:34)
[2023-07-27] MEDS: CALCIUM W/VIT D (600MG/400IU) TAB PO SCH (10:08)
[2023-07-27] MEDS: Glucerna Carbsteady SHAKE Vanilla 8oz PO SCH ×2 (10:08→12:00)
[2023-07-27] MEDS: FUROSEMIDE 40 MG TAB PO SCH (10:10)
[2023-07-27] MEDS: amLODIPine BESYLATE 5 MG TAB PO SCH (10:10)
[2023-07-27] MEDS: METOPROLOL TARTRATE 25 MG TAB PO SCH (10:11)
[2023-07-27] MEDS ORDERED: FURO1TAB31 PO (11:42)
[2023-07-27] MEDS ORDERED: METO25TA36 PO (11:42)
[2023-07-27] MEDS ORDERED: ATO40T PO (11:42)
[2023-07-27] MEDS ORDERED: LEVO150T10 PO (11:42)
[2023-07-27] MEDS ORDERED: AML5T PO (11:42)
[2023-07-27 14:43] VITALS: BP 117/69; PULSE 84; TEMP 36.7
== END 2023-07-27 16:30 | disposition home or self-care (01) | DRG 194 ==
LOC: ER 17:33 → TELE 21:35 → TELE-CENTR 07-07 14:01 → CENTRAL 07-10 14:43
PROVIDERS: ADMIT Internal Medicine Geriatric Medicine; ATTEND Internal Medicine Geriatric Medicine
PROC: 5A1D70Z Performance of Urinary Filtration, Intermittent, Less than 6 Hours Per Day (ICD-10-PCS; principal; 2023-07-07)
PROC: 5A1D70Z Performance of Urinary Filtration, Intermittent, Less than 6 Hours Per Day (ICD-10-PCS; 2023-07-09)
PROC: 5A1D70Z Performance of Urinary Filtration, Intermittent, Less than 6 Hours Per Day (ICD-10-PCS; 2023-07-11)
PROC: 5A1D70Z Performance of Urinary Filtration, Intermittent, Less than 6 Hours Per Day (ICD-10-PCS; 2023-07-13)
PROC: 5A1D70Z Performance of Urinary Filtration, Intermittent, Less than 6 Hours Per Day (ICD-10-PCS; 2023-07-16)
PROC: 5A1D70Z Performance of Urinary Filtration, Intermittent, Less than 6 Hours Per Day (ICD-10-PCS; 2023-07-18)
PROC: 5A1D70Z Performance of Urinary Filtration, Intermittent, Less than 6 Hours Per Day (ICD-10-PCS; 2023-07-21)
PROC: 5A1D70Z Performance of Urinary Filtration, Intermittent, Less than 6 Hours Per Day (ICD-10-PCS; 2023-07-24)
PROC: 5A1D70Z Performance of Urinary Filtration, Intermittent, Less than 6 Hours Per Day (ICD-10-PCS; 2023-07-26)
DX: I13.2 Hypertensive heart and chronic kidney disease with heart failure and with stage 5 chronic kidney disease, or end stage renal disease (principal); N18.6 End stage renal disease; D63.1 Anemia in chronic kidney disease; E83.39 Other disorders of phosphorus metabolism; E83.51 Hypocalcemia; E11.22 Type 2 diabetes mellitus with diabetic chronic kidney disease; E87.5 Hyperkalemia; I50.43 Acute on chronic combined systolic (congestive) and diastolic (congestive) heart failure; E78.5 Hyperlipidemia, unspecified; E03.9 Hypothyroidism, unspecified; Z20.822 Contact with and (suspected) exposure to COVID-19; M81.0 Age-related osteoporosis without current pathological fracture; N25.0 Renal osteodystrophy; E66.01 Morbid (severe) obesity due to excess calories; I87.2 Venous insufficiency (chronic) (peripheral); Z79.899 Other long term (current) drug therapy; Z79.4 Long term (current) use of insulin; Z79.891 Long term (current) use of opiate analgesic; Z87.891 Personal history of nicotine dependence; Z82.0 Family history of epilepsy and other diseases of the nervous system; Z83.3 Family history of diabetes mellitus; Z99.2 Dependence on renal dialysis; Z80.0 Family history of malignant neoplasm of digestive organs; Z68.41 Body mass index [BMI] 40.0-44.9, adult
CPT/HCPCS: 36415; 36600; 71045; 71250; 76775; 80048; 80053; 80307; 81001; 82306; 82570; 82607; 82728; 82784; 82805; 82962; 83036; 83540; 83550; 83605; 83615; 83735; 83880; 83970; 84100; 84156; 84300; 84443; 84484; 84550; 85014; 85018; 85025; 85045; 85379; 86038; 86200; 86334; 86803; 87081; 87086; 87340; 87426; 87804; 90935; 93005; 93306; 94640; 97110; 97116; 97163; 97530; G0378; J1642; J1815; J7042

== ENCOUNTER 2024-05-10 12:46 | Inpatient (IN) | payer MEDICAID ==
[~2024-05-10] VITALS: Ht 170.2 cm; Wt 117.8 kg
[~2024-05-10 12:46] MED LIST changes: +AML5T PO; +ATOR-507 PO; +FURO1TAB31 PO; -LEV100T PO; +LEVO-849 PO; +LEVO150T10 PO; +METO25TA36 PO; +[UNRECOGNIZED DRUG - CODE] EX; -[UNRECOGNIZED DRUG - CODE] EX
--- NOTE | 2024-05-10 12:54 | ED.PDOC ---
History of Present Illness HPI Comments 64Y M with PMHx DM, ESRD, and CHF presents to ED via EMS for chief complaint general weakness. Pt is supposed to have dialysis 3x weekly on , , and but pt has not gone in over one week. Pt denies SOB and chest pain. Upon EMS arrival, pt was hypoglycemic and was provided with oral glucose. Pt's nephrolo gist is at [facility]. Pt states he was taken off insulin and currently does not take any medications for DM. No known allergies. Time Seen by MD: 12:42 Primary Care Provider: Salima Reviewed Notes: Medications, Allergies Allergies: Coded Allergies: NO KNOWN ALLERGIES (Unverified , 03/14/16) Home Meds Active Scripts Metoprolol Succinate (Toprol Xl) 25 Mg Tab, 1 TAB PO DAILY, #30 TAB 5 Refills Prov:CHRISTIAN CRUZ MD 07/27/23 Levothyroxine Sodium (Levothyroxine Sodium) 150 Mcg Tab, 1 TAB PO DAILY, #30 TAB 5 Refills Prov:CHRISTIAN CRUZ MD 07/27/23 Furosemide (Lasix) 40 Mg Tab, 40 MG PO DAILY for 30 Days, #30 TAB Prov:CHRISTIAN CRUZ MD 07/27/23 Atorvastatin Calcium (Lipitor) 40 Mg Tab, 1 TAB PO DAILY, #30 TAB 5 Refills Prov:CHRISTIAN CRUZ MD 07/27/23 Amlodipine Besylate (NORVASC TABLET) 5 Mg Tb, 5 MG PO DAILY for 30 Days, #30 TAB Prov:CHRISTIAN CRUZ MD 07/27/23 Insulin Isophane & Reg (Human) (Humulin 70/30) 70/30 Inj, 40 UNITS SC HS, #30 UNITS Prov:MARK LYON MD 03/20/16 Insulin Isophane & Reg (Human) (Humulin 70/30) 70/30 Inj, 80 UNITS SC DAILY, #30 UNITS Prov:MARK LYON MD 03/20/16 Levothyroxine Sodium (SYNTHROID TABLET) 100 Mcg Tb, 150 MCG PO DAILY, #30 Prov:MARK LYON MD 03/20/16 Famotidine (PEPCID TABLET) 20 Mg Tb, 20 MG PO DAILY, #30 Prov:MARK LYON MD 03/20/16 Furosemide (LASIX TABLET) 40 Mg Tb, 40 MG PO DAILY, #30 Prov:MARK LYON MD 03/20/16 Reported Medications Clobetasol Propionate Emulsion (CLOBETASOL PROPIONATE) 0.05 % Aer, 0.05 % EX PRN, AER 04/23/16 Alendronate Sodium (Alendronate Sodium) 70 Mg Tab, 1 TAB PO QWEEKLY, #4 TAB 3 Refills 04/23/16 Cholecalciferol (Vitamin D3) 1,000 Unit Cap, 1 CAP PO DAILY, CAP 04/23/16 Diclofenac (Zorvolex) 35 Mg Cap, 75 MG PO BID, CAP 04/23/16 Metolazone (Metolazone) 5 Mg Tab, 5 MG PO QWEEKLY, TAB 04/23/16 Baclofen (Baclofen) 10 Mg Tab, 10 MG PO BID, TAB 04/23/16 Atorvastatin Calcium (ATORVASTATIN CALCIUM) 10 Mg Tab, 10 MG PO HS, TAB 04/23/16 Hydrocodone-Acetaminophen ([place] 10/325MG) 1 Tab Tb, 1 TAB PO BID, #60 TAB 03/15/16 Information Source: Patient, Emergency Med Personnel Mode of Arrival: EMS Severity: Mild Timing: Days Duration: Since onset Prehospital treatment: Other Past Medical History PAST MEDICAL HISTORY: CHF, CKF, DM, ESRD, Thyroid Surgical History: Hernia Repair Family History Family History: Unobtainable Social History Smoker: Quit Greater Than 1 Year, Cigarettes Alcohol: Occasionally Drugs: Marijuana Lives In: Home Constitutional: reports: weakness; denies: chills, diaphoresis, fatigue, fever, malaise, sweats, others EENTM: denies: blurred vision, double vision, ear bleeding, ear discharge, ear drainage, ear pain, ear ringing, eye pain, eye redness, hearing loss, mouth pain, mouth swelling, nasal discharge, nose bleeding, nose congestion, nose pain, photophobia, tearing, throat pain, throat swelling, voice changes, others Respiratory: denies: cough, hemoptysis, orthopnea, SOB at rest, shortness of breath, SOB with excertion, stridor, wheezing, others Cardiovascular: denies: chest pain, dizzy spells, diaphoresis, Dyspnea on exertion, edema, irregular heart beat, left arm pain, lightheadedness, palpitations, PND, syncope, others Gastrointestinal: denies: abdomen distended, abdominal pain, blood streaked bowels, constipated, diarrhea, dysphagia, difficulty swallowing, hematemesis, melena, nausea, poor appetite, poor fluid intake, rectal bleeding, rectal pain, vomiting, others Genitourinary: denies: burning, dysuria, flank pain, frequency, hematuria, incontinence, penile discharge, penile sore, pain, testicle pain, testicle swelling, urgency, others Neurological: denies: dizziness, fainting, headache, left sided numbness, left sided weakness, numbness, paresthesia, pre-existing deficit, right sided numbne ss, right sided weakness, seizure, speech problems, tingling, tremors, weakness, others Musculoskeletal: denies: back pain, gout, joint pain, joint swelling, muscle pain, muscle stiffness, neck pain, others Integumetry: denies: bruises, change in color, change in hair/nails, dryness, laceration, lesions, lumps, rash, wounds, others Allergic/Immunocompromised: denies: Difficulty Healing, Frequent Infections, Hives, Itching, others Hematologic/Lymphatic: denies: anemia, blood clots, easy bleeding, easy bruising, swollen glands, others Endocrine: denies: excessive hunger, excessive sweating, excessive thirst, excessive urination, flushing, intolerance to cold, intolerance to heat, unexplained weight gain, unexplained weight loss, others Psychiatric: denies: anxiety, bipolar disorder, depression, hopeless, panic disorder, schizophrenia, sleepless, suicidal, others All Other Systems: Reviewed and Negative Physical Exam General Appearance: Moderate Distress, Normal HEENT: Normal ENT Inspection, Pharynx Normal, TMs Normal Neck: Full Range of Motion, Non-Tender, Normal, Normal Inspection Respiratory: Chest Non-Tender, No Accessory Muscle Use, Other (Coarse breath sounds) Cardiovascular: No Edema, No JVD, No Murmur, No Gallop, Normal Peripheral Puls es, Regular Rate/Rhythm Breast Exam: Deferred Gastrointestinal: No Organomegaly, Non Tender, No Pulsatile Mass, Normal Bowel Sounds, Soft Genitalia: Deferred Pelvic: Deferred Rectal: Deferred Extremities: No calf tenderness, Normal capillary refill, Normal range of motion, Non-tender, Pedal edema, Swelling (Bilateral lower extremity) Musculoskeletal : Apperance: Normal Neurologic: Alert, accident investigator II-XII nml as Tested, No Motor Deficits, Normal Affect, Normal Mood, No Sensory Deficits Cerebellar Function: Normal, NOT DONE Reflexes: Normal, NOT DONE Skin: Dry, Normal Color, Warm Peripheral Pulses: 3+ Radial (R), 3+ Radial (L) Lymphatic: No Adenopathy Was a procedure done? Was a procedure done?: Yes Sedation Sedation?: No Central Line Recorder of insertion practice: Shellfish Shucker Occupation of secondary connector armature: Attending Physician Indication: Hypotension Room prepared for procedure: Yes Shellfish Shucker performed hand hygien: Yes Maximal sterile barrier precau: Mask/Eye shield, Sterile gown Skin Preparation: Chlorhexidine gluconate, Providine iodine Skin preparation completely dr: Yes Insertion site: Right, Femoral Central line catheter type: [id number] dialysis Number of lumens: 3 Antiseptic ointment applied to: Yes Differential Dx Considerations may include: CHF Electrolyte imbalance X-Ray, Labs, Meds, VS Vital Signs Date Time Temp Pulse Resp B/P (MAP) Pulse Ox O2 Delivery O2 Flow Rate FiO2 05/10/24 17:24 16 95 Room Air* 0 05/10/24 15:45 76 11 94/54 (67) 97 05/10/24 15:00 78 14 100/54 (69) 93 05/10/24 14:46 58 20 81/43 (56) 93 05/10/24 14:30 87 13 96/61 (73) 93 05/10/24 14:25 109/73 05/10/24 14:16 52 27 109/73 (85) 95 05/10/24 14:13 60 12 106/60 (75) 98 05/10/24 14:12 65 16 84/47 (59) 96 05/10/24 14:05 135 05/10/24 14:00 65 13 89/56 (67) 96 05/10/24 14:00 18 97 Room Air* 0 05/10/24 13:58 88 05/10/24 13:41 54 13 96 Room Air* 0 21 05/10/24 13:41 98.8 54 13 89/47 (61) 96 98.8 05/10/24 12:51 90 05/10/24 12:46 98.8 80 18 116/61 (79) 96 Lab Test 05/10/24 17:05 05/10/24 13:58 05/10/24 13:07 Range/Units Potassium Level 6.7 *H Pending POC Glucose 55 L 70-106 mg/dl White Blood Count 3.1 L 4.4-10.8 10^3/uL Red Blood Count 3.09 L 4.5-5.90 10^6/uL Hemoglobin 9.9 L 13.5-17.5 g/dL Hematocrit 30.9 L 41.0-53.0 % Mean Corpuscular Volume 100.2 H 80.0-100.0 fL Mean Corpuscular Hemoglobin 32.1 H 28.0-32.0 pg Mean Corpuscular Hemoglobin Concent 32.0 32.0-36.0 g/dL Red Cell Distribution Width 18.3 H 11.8-14.3 % Platelet Count 60 L 140-450 10^3/uL Mean Platelet Volume 9.0 6.9-10.8 fL Neutrophils (%) (Auto) 60.9 37.0-80.0 % Lymphocytes (%) (Auto) 25.9 10.0-50.0 % Monocytes (%) (Auto) 9.3 0.0-12.0 % Eosinophils (%) (Auto) 2.3 0.0-7.0 % Basophils (%) (Auto) 1.6 0.0-2.0 % Neutrophils # (Auto) 1.9 1.6-8.6 10 ^3/uL Lymphocytes # (Auto) 0.8 0.4-5.4 10 ^3/uL Monocytes # (Auto) 0.3 0-1.3 10 ^3/uL Eosinophils # (Auto) 0.1 0-0.8 10 ^3/uL Basophils # (Auto) 0.1 0-0.2 10 ^3/uL Nucleated Red Blood Cells 0.4 % Sodium Level 133 L 136-145 mmol/L Chloride Level 104 98-107 mmol/L Carbon Dioxide Level < 10 *L 20-31 mmol/L Anion Gap > 19 H 5-15 Blood Urea Nitrogen 138 *H 9-23 mg/dL Creatinine 19.21 *H 0.700-1.30 mg/dL Glomerular Filtration Rate Calc 2 >90 mL/min BUN/Creatinine Ratio 7.2 L 10.0-20.0 Serum Glucose 59 L 74-106 mg/dL Calcium Level 6.9 L 8.7-10.4 mg/dL Troponin I High Sensitivity 67 *H </=54 ng/L B-Type Natriuretic Peptide 562.89 0-100 pg/mL Current Medications Medications (Trade) Dose Ordered Sig/Nikhil Route Start Time Stop Time Status Last Admin Calcium Gluconate/ Sodium Chloride 50 ml @ 120 mls/hr ONCE ONCE IV 05/10/24 13:00 05/10/24 13:24 DC 05/10/24 14:23 Insulin Human Regular (InsuLIN R) 10 units ONCE ONCE IV 05/10/24 14:00 05/10/24 14:01 DC 05/10/24 14:26 Dextrose 50 ml ONCE ONCE IV 05/10/24 14:00 05/10/24 14:01 DC 05/10/24 14:31 Albuterol (Ventolin Medneb) 20 mg ONCE ONCE NEB 05/10/24 14:00 05/10/24 14:01 DC 05/10/24 14:00 Sodium Bicarbonate 50 ml ONCE ONCE IV 05/10/24 14:00 05/10/24 14:01 DC 05/10/24 14:24 Furosemide (Lasix Injection) 20 mg ONCE ONCE IV 05/10/24 14:00 05/10/24 14:01 DC 05/10/24 14:25 Zirconium Oxide (Lokelma) 10 gm ONCE ONCE PO 05/10/24 14:00 05/10/24 14:01 DC 05/10/24 14:31 Sodium Bicarbonate 50 ml ONCE ONCE IV 05/10/24 14:45 05/10/24 14:46 DC 05/10/24 14:52 Albuterol (Ventolin Medneb) 20 mg ONCE ONCE NEB 05/10/24 17:15 05/10/24 17:16 DC 05/10/24 17:24 [place] [id number] Ph: [phone] DIAGNOSTIC IMAGING Diagnostic Imaging Report : [id number] Signed PATIENT: GLO VASQUEZ ACCT: [id number] UNIT: [id number] : 1960 LOC: ER ROOM / BED: / AGE / SEX: 64 / M ADM STATUS: REG ER SERVICE 1252 ORDERING PHYSICIAN: ANTHONY SALEH MD PROCEDURE(s): CXRP - CHEST PORTABLE REASON: sob ORDER NUMBER(s): [id number], ACCESSION NUMBER(s): [id number] CHEST RADIOGRAPH Indication:sob Technique: Single frontal view of the chest was obtained COMPARISON: XY CHEST PORTABLE on DOS: 07/14/23, XY CHEST PORTABLE on DOS: 07/05/23 FINDINGS: Lines and Tubes: None Lungs: Probable mild interstitial pulmonary edema. Pleura: No effusion. No pneumothorax. Cardiomediastinal contours: Unremarkable Bones: Unremarkable IMPRESSION: 1. Probable mild interstitial pulmonary edema. ATED BY: REYES MARIE MD DICTATED DATE/TIME: 05/10/241534 SIGNED BY: REYES MARIE MD SIGNED DATE/TIME: 05/10/241534 CC: Patient alert. Complaining of generalized weakness. Has not been dialyzed for a weak. Vitals stable. EKG does show possible electrolyte disturbances. Reviewed his previous visit. Was given Lasix. Nephrology consultation. Explained to the patient. Continue cardiac monitoring. Potassium elevated pain Hyperkalemia treatment. Spoke with hospitalist. Time of 1ST Reevaluation: 13:12 Reevaluation 1ST: Unchanged Patient Education/Counseling: Diagnosis, Treatment Family Education/Counseling: No Family Present Departure 1 Departure Time of Disposition: 12:58 Impression: Primary Impression: CHF (congestive heart failure) Qualified Codes: I50.43 - Acute on chronic combined systolic (congestive) and diastolic (congestive) heart failure Additional Impressions: End stage renal disease on dialysis Uncontrolled diabetes mellitus Qualified Codes: E13.65 - Other specified diabetes mellitus with hyperglycemia Hyperkalemia Disposition: ADMITTED INPATIENT Admit to: Med Surg Condition: Guarded Critical Care Note Critical Care Time?: Yes (90 min-critical care time only) Stability Stability form required: No Heart Score Heart Score: Heart Score Response (Comments) Value History Slightly Suspicious 0 EKG Normal 0 Age 45-64 1 Risk Factors >3 or Hx ASHD 2 Troponin Normal limit 0 Total 3 I personally scribed for ANTHONY SALEH MD ([email or web address]) on 05/10/24 at 12:54. Electronically submitted by Reyna Dimas ([email or web address]). I personally scribed for ANTHONY SALEH MD ([email or web address]) on 05/10/24 at 15:45. Electronically submitted by Reyna Dimas ([email or web address]). ANTHONY SALEH MD May 10, 2024 12:54
[2024-05-10 13:26] LABS: Basophils # (auto) 0.1 10 ^3/uL (0-0.2); Eosinophils # (auto) 0.1 10 ^3/uL (0-0.8); Mean Corpuscular Volume 100.2 fL (80.0-100.0); Monocytes # (auto) 0.3 10 ^3/uL (0-1.3); Nucleated Red Blood Cells % 0.4 %; White Blood Cell 3.1 10^3/uL (4.4-10.8)
[2024-05-10 13:28] LABS: Basophils % (auto) 1.6 % (0.0-2.0); Eosinophils % (auto) 2.3 % (0.0-7.0); Hematocrit 30.9 % (41.0-53.0); Hemoglobin 9.9 g/dL (13.5-17.5); Lymphocytes # (auto) 0.8 10 ^3/uL (0.4-5.4); Lymphocytes % (auto) 25.9 % (10.0-50.0); Mean Corpuscular Hemoglobin 32.1 pg (28.0-32.0); Monocytes % (auto) 9.3 % (0.0-12.0); Neutrophils # (auto) 1.9 10 ^3/uL (1.6-8.6); Neutrophils % (auto) 60.9 % (37.0-80.0); Platelet Count (auto) 60 10^3/uL (140-450); Red Blood Cells 3.09 10^6/uL (4.5-5.90); Red Cell Distribution Width 18.3 % (11.8-14.3)
[2024-05-10 13:33] LABS: Sodium 133 mmol/L (136-145)
[2024-05-10 13:35] LABS: Calcium 6.9 mg/dL (8.7-10.4)
[2024-05-10 13:39] LABS: Glucose 59 mg/dL (74-106)
[2024-05-10 13:40] LABS: BUN/Creatinine Ratio 7.2 (10.0-20.0)
[2024-05-10 13:41] VITALS: PULSE 54; RESP 13; O2SAT 96
[2024-05-10 13:44] LABS: Blood Urea Nitrogen 138 mg/dL (9-23); Carbon Dioxide < 10 mmol/L (20-31)
[2024-05-10 13:45] LABS: Potassium 8.5 mmol/L (3.5-5.1)
[2024-05-10 13:49] LABS: Chloride 104 mmol/L (98-107)
[2024-05-10 13:52] LABS: Anion Gap > 19 (5-15)
[2024-05-10] MEDS: ALBUTEROL SULF 2.5 MG/0.5ML(0.5%) NEB SOLN NEB ONE ×2 (14:00→17:24)
--- NOTE | 2024-05-10 14:07 | ECG ---
[facility] Test Date: 2024-05-10 Test Time: 14:05:34 Pat Name: GLO VASQUEZ Department: ER Room: 0288T Gender: M Cell Room Operator: HENRY : 1960 Requested By: ANTHONY SALHE Order Number: [id number] Reading MD: Aakash Monte Measurements Intervals [place] Rate: 135 P: 0 MN: 0 QRS: -76 QRSD: 184 T: 199 QT: 335 QTc: 503 Interpretive Statements Atrial fibrillation wide complex rhythm Electronically Signed On 05-16-2024 16:53:42 PST by Aakash Monte Please click the below link to view image of tracing.
[2024-05-10] MEDS: CALCIUM GLUC 1,000mg/50ml-NS 50 ML IV ONE ×2 (14:23→18:56)
[2024-05-10] MEDS: SODIUM BICARB 8.4% 50Meq/50ml SYR INJ IV ONE (14:24)
[2024-05-10] MEDS: FUROSEMIDE 20 MG/2 ML VIAL IV ONE ×2 (14:25→22:22)
[2024-05-10] MEDS: InsuLIN REG 1unit/0.01ml Soln (100units/ml) IV ONE ×2 (14:26→18:58)
[2024-05-10] MEDS: SODIUM BICARB 8.4% 50Meq/50ml SYR INJ ONE (14:28)
[2024-05-10] MEDS: DEXTROSE (50%) 50ML SYRG IV ONE ×2 (14:31→18:58)
[2024-05-10] MEDS: SODIUM ZIRCONIUM CYCL 10 GM PAK PO ONE ×2 (14:31→18:58)
[2024-05-10] MEDS: SODIUM BICARB 8.4% 50Meq/50ml SYR Vial IV ONE (14:52)
--- NOTE | 2024-05-10 15:38 | DVH ---
CHEST RADIOGRAPH Indication:sob Technique: Single frontal view of the chest was obtained COMPARISON: XY CHEST PORTABLE on DOS: 07/14/23, XY CHEST PORTABLE on DOS: 07/05/23 FINDINGS: Lines and Tubes: None Lungs: Probable mild interstitial pulmonary edema. Pleura: No effusion. No pneumothorax. Cardiomediastinal contours: Unremarkable Bones: Unremarkable IMPRESSION: 1. Probable mild interstitial pulmonary edema.
[2024-05-10] MEDS: SODIUM CHL 0.9% 1000 ML BAG XX ONE (18:15)
--- NOTE | 2024-05-10 18:37 | DVHINCON2 ---
Date of service: May 10, [address] Farmer Reason for Consultation ESRD History of Present Illness 64 year old Male PMH ESRD, htn reports he missed 8 days of dialysis due to diarrhea. he is noted to have K 8.5 nephrology called for stat dialysis Past Medical History hypothyroid CHF Past Surgical History AVF Allergies: Coded Allergies: NO KNOWN ALLERGIES (Unverified , 03/14/16) Home Meds Active Scripts Metoprolol Succinate (Toprol Xl) 25 Mg Tab, 1 TAB PO DAILY, #30 TAB 5 Refills Prov:CHRITSIAN CRUZ MD 07/27/23 Levothyroxine Sodium (Levothyroxine Sodium) 150 Mcg Tab, 1 TAB PO DAILY, #30 TAB 5 Refills Prov:CHRISTIAN CRUZ MD 07/27/23 Furosemide (Lasix) 40 Mg Tab, 40 MG PO DAILY for 30 Days, #30 TAB Prov:CHRISTIAN CRUZ MD 07/27/23 Atorvastatin Calcium (Lipitor) 40 Mg Tab, 1 TAB PO DAILY, #30 TAB 5 Refills Prov:CHRISTIAN CRUZ MD 07/27/23 Amlodipine Besylate (NORVASC TABLET) 5 Mg Tb, 5 MG PO DAILY for 30 Days, #30 TAB Prov:CHRISTIAN CRUZ MD 07/27/23 Insulin Isophane & Reg (Human) (Humulin 70/30) 70/30 Inj, 40 UNITS SC HS, #30 UNITS Prov:MARK LYON MD 03/20/16 Insulin Isophane & Reg (Human) (Humulin 70/30) 70/30 Inj, 80 UNITS SC DAILY, #30 UNITS Prov:MARK LYON MD 03/20/16 Levothyroxine Sodium (SYNTHROID TABLET) 100 Mcg Tb, 150 MCG PO DAILY, #30 Prov:MARK LYON MD 03/20/16 Famotidine (PEPCID TABLET) 20 Mg Tb, 20 MG PO DAILY, #30 Prov:MARK LYON MD 03/20/16 Furosemide (LASIX TABLET) 40 Mg Tb, 40 MG PO DAILY, #30 Prov:MARK LYON MD 03/20/16 Reported Medications Clobetasol Propionate Emulsion (CLOBETASOL PROPIONATE) 0.05 % Aer, 0.05 % EX PRN, AER 10/30/16 Alendronate Sodium (Alendronate Sodium) 70 Mg Tab, 1 TAB PO QWEEKLY, #4 TAB 3 Refills 04/23/16 Cholecalciferol (Vitamin D3) 1,000 Unit Cap, 1 CAP PO DAILY, CAP 04/23/16 Diclofenac (Zorvolex) 35 Mg Cap, 75 MG PO BID, CAP 04/23/16 Metolazone (Metolazone) 5 Mg Tab, 5 MG PO QWEEKLY, TAB 04/23/16 Baclofen (Baclofen) 10 Mg Tab, 10 MG PO BID, TAB 04/23/16 Atorvastatin Calcium (ATORVASTATIN CALCIUM) 10 Mg Tab, 10 MG PO HS, TAB 04/23/16 Hydrocodone-Acetaminophen ([place] 10/325MG) 1 Tab Tb, 1 TAB PO BID, #60 TAB 03/15/16 Family History: Family history: Alzheimer's disease G8 MOTHER, Onset:50's - 60 Family history: Diabetes mellitus G8 MOTHER G8 FATHER G8 SISTER Family history: Thyroid disorder G8 MOTHER G8 FATHER Review of Systems diarrhea weakness H&P Exam Vital Signs/I&O Vital Sign Date Time Temp Pulse Resp B/P (MAP) Pulse Ox O2 Delivery O2 Flow Rate FiO2 05/10/24 17:24 16 95 Room Air* 0 21 05/10/24 16:00 76 05/10/24 15:45 94/54 (67) 05/10/24 13:41 98.8 98.8 Physical Exam male mild jitteriness AAOx3 no mumur Left arm AVF no pitting edema soft ND abdomen Labs/Diagnostic Data Labs/Diagnostic Data Laboratory Tests Test 05/10/24 17:05 05/10/24 13:58 05/10/24 13:07 Range/Units Potassium Level 6.7 *H 8.5 *H 3.5-5.1 mmol/L POC Glucose 55 L 70-106 mg/dl White Blood Count 3.1 L 4.4-10.8 10^3/uL Red Blood Count 3.09 L 4.5-5.90 10^6/uL Hemoglobin 9.9 L 13.5-17.5 g/dL Hematocrit 30.9 L 41.0-53.0 % Mean Corpuscular Volume 100.2 H 80.0-100.0 fL Mean Corpuscular Hemoglobin 32.1 H 28.0-32.0 pg Mean Corpuscular Hemoglobin Concent 32.0 32.0-36.0 g/dL Red Cell Distribution Width 18.3 H 11.8-14.3 % Platelet Count 60 L 140-450 10^3/uL Mean Platelet Volume 9.0 6.9-10.8 fL Neutrophils (%) (Auto) 60.9 37.0-80.0 % Lymphocytes (%) (Auto) 25.9 10.0-50.0 % Monocytes (%) (Auto) 9.3 0.0-12.0 % Eosinophils (%) (Auto) 2.3 0.0-7.0 % Basophils (%) (Auto) 1.6 0.0-2.0 % Neutrophils # (Auto) 1.9 1.6-8.6 10 ^3/uL Lymphocytes # (Auto) 0.8 0.4-5.4 10 ^3/uL Monocytes # (Auto) 0.3 0-1.3 10 ^3/uL Eosinophils # (Auto) 0.1 0-0.8 10 ^3/uL Basophils # (Auto) 0.1 0-0.2 10 ^3/uL Nucleated Red Blood Cells 0.4 % Sodium Level 133 L 136-145 mmol/L Chloride Level 104 98-107 mmol/L Carbon Dioxide Level < 10 *L 20-31 mmol/L Anion Gap > 19 H 5-15 Blood Urea Nitrogen 138 *H 9-23 mg/dL Creatinine 19.21 *H 0.700-1.30 mg/dL Glomerular Filtration Rate Calc 2 >90 mL/min BUN/Creatinine Ratio 7.2 L 10.0-20.0 Serum Glucose 59 L 74-106 mg/dL Calcium Level 6.9 L 8.7-10.4 mg/dL Troponin I High Sensitivity 67 *H </=54 ng/L B-Type Natriuretic Peptide 562.89 0-100 pg/mL Assessment ESRD hyperkalemia uremia due to noncompliance anemia due to CKD metabolic acidosis stat dialysis fluid removal as tolerated renal diet when stable start potassium binder HD nurse at bedside for dialysis Plan discussed with: Patient ROCKY ORTEGA MD May 10, 2024 18:37
[2024-05-10] MEDS ORDERED: DEXTROSE (50%) 50ML SYRG IV PRN (19:00)
[2024-05-10] MEDS ORDERED: ACETAMINOPHEN 500 MG TAB PO PRN (19:00)
[2024-05-10] MEDS ORDERED: ONDANSETRON HCL 4 MG/2 ML VIAL IV PRN (19:00)
[2024-05-10] MEDS ORDERED: NITROGLYCERIN 0.4 MG SL TAB SL PRN (19:00)
[2024-05-10] MEDS ORDERED: MORPHINE SULFATE INJ 2 MG/ml SYRG IV PRN (19:00)
[2024-05-10 19:30] VITALS: PULSE 97; RESP 16; O2SAT 100
[2024-05-10] MEDS: SODIUM ZIRCONIUM CYCL 10 GM PAK PO SCH (21:42)
[2024-05-10] MEDS: ACCU-CHEK COMFORT CURVE STRIP VI SCH (21:48)
[2024-05-10] MEDS: InsuLIN REG 1unit/0.01ml Soln (100units/ml) SC SCH (21:49)
[2024-05-10] MEDS: BACLOFEN 10 MG TAB PO SCH (21:55)
[2024-05-10] MEDS: HYDROcodone-ACET 5/325MG TAB PO PRN (22:36)
[2024-05-10 23:02] LABS: COVID19 ANTIGEN SOFIA FIA NEGATIVE (NEGATIVE); Rapid Influenza A Negative (Negative); Rapid Influenza B Negative (Negative)
[2024-05-10 23:10] LABS: Lactic Acid w/Reflex 5.5 mmol/L (0.4-2.0)
[2024-05-11] VITALS (9 sets, daily range): BP systolic 93–103; BP diastolic 53–83; PULSE 65–87; RESP 16–20; TEMP 97.4–98.3; O2SAT 2–100
[2024-05-11] MEDS: SODIUM CHLORIDE 0.9% 1,000 ML IV SCH (00:01)
[2024-05-11 00:56] LABS: Chloride 101 mmol/L (98-107); Potassium 4.4 mmol/L (3.5-5.1); Sodium 137 mmol/L (136-145)
[2024-05-11 00:57] LABS: Anion Gap 17 (5-15); Carbon Dioxide 19 mmol/L (20-31)
[2024-05-11 00:58] LABS: Calcium 7.5 mg/dL (8.7-10.4)
--- NOTE | 2024-05-11 01:01 | DVHHP2 ---
Admitting Diagnosis: Hyperkalemia, hypoglycemia, missed hemodialysis History of Present Illness History Source: Patient Exam Limitations: No limitations HPI Mr. Bakari Wong is a 64 yo male with a history of DM, ESRD on HD , CHF, Hypothyroidism. Patient presents with generalized weakness. Patient reports he missed hemodialysis x 1 week due to diarrhea. Patient denies any further diarrhea. Patient denies any chest pain, nausea, vomiting, fevers chills, headaches, dizziness, blurry vision, abdominal pain, constipation. Patient K level 8.5, 6.7, BUN 138/19.21, troponin levels 67, 71, lactic level 5.0. Patient admitted for further evaluation and treatment. Home Meds Active Scripts Metoprolol Succinate (Toprol Xl) 25 Mg Tab, 1 TAB PO DAILY, #30 TAB 5 Refills Prov:CHRISTIAN CRUZ MD 07/27/23 Levothyroxine Sodium (Levothyroxine Sodium) 150 Mcg Tab, 1 TAB PO DAILY, #30 TAB 5 Refills Prov:CHRISTIAN CRUZ MD 07/27/23 Furosemide (Lasix) 40 Mg Tab, 40 MG PO DAILY for 30 Days, #30 TAB Prov:CHRISTIAN CRUZ MD 07/27/23 Atorvastatin Calcium (Lipitor) 40 Mg Tab, 1 TAB PO DAILY, #30 TAB 5 Refills Prov:CHRISTIAN CRUZ MD 07/27/23 Amlodipine Besylate (NORVASC TABLET) 5 Mg Tb, 5 MG PO DAILY for 30 Days, #30 TAB Prov:CHRISTIAN CRUZ MD 07/27/23 Insulin Isophane & Reg (Human) (Humulin 70/30) 70/30 Inj, 40 UNITS SC HS, #30 U NITS Prov:MARK LYON MD 03/20/16 Insulin Isophane & Reg (Human) (Humulin 70/30) 70/30 Inj, 80 UNITS SC DAILY, #30 UNITS Prov:MARK LYON MD 03/20/16 Levothyroxine Sodium (SYNTHROID TABLET) 100 Mcg Tb, 150 MCG PO DAILY, #30 Prov:MARK LYON MD 03/20/16 Famotidine (PEPCID TABLET) 20 Mg Tb, 20 MG PO DAILY, #30 Prov:MARK LYON MD 03/20/16 Furosemide (LASIX TABLET) 40 Mg Tb, 40 MG PO DAILY, #30 Prov:MARK LYON MD 03/20/16 Reported Medications Clobetasol Propionate Emulsion (CLOBETASOL PROPIONATE) 0.05 % Aer, 0.05 % EX PRN, AER 04/23/16 Alendronate Sodium (Alendronate Sodium) 70 Mg Tab, 1 TAB PO QWEEKLY, #4 TAB 3 Refills 04/23/16 Cholecalciferol (Vitamin D3) 1,000 Unit Cap, 1 CAP PO DAILY, CAP 04/23/16 Diclofenac (Zorvolex) 35 Mg Cap, 75 MG PO BID, CAP 04/23/16 Metolazone (Metolazone) 5 Mg Tab, 5 MG PO QWEEKLY, TAB 04/23/16 Baclofen (Baclofen) 10 Mg Tab, 10 MG PO BID, TAB 04/23/16 Atorvastatin Calcium (ATORVASTATIN CALCIUM) 10 Mg Tab, 10 MG PO HS, TAB 04/23/16 Discontinued Reported Medications Hydrocodone-Acetaminophen ([place] 10/325MG) 1 Tab Tb, 1 TAB PO BID, #60 TAB 03/15/16 Past Medical History Cardiac: CHF Pulmonary: No pertinent Hx Central Nervous System: No pertinent Hx GI: No pertinent Hx Hemotology/Oncology: No pertinent Hx Hepatobiliary: No pertinent Hx Psychiatric: No pertinent Hx Musculoskeletal: No pertinent Hx Rheumotologic: No pertinent Hx Infectious Disease: No peritnent Hx ENT: No pertinent Hx Renal/: ESRD HD/PD Endocrine: Hypothyroidism, NIDDM Dermatology: No pertinent Hx Patient Family History: Family history: Alzheimer's disease G8 MOTHER, Onset:50's - 60 Family history: Diabetes mellitus G8 MOTHER G8 FATHER G8 SISTER Family history: Thyroid disorder G8 MOTHER G8 FATHER Smoker: No Hx (Negative) Alocohol: None Drugs: Marijuana Lives with: With family Domestic Violence: Neg Review of Systems Constitutional: No symptom reported Ears, Nose, & Throat: No symptom reported Eyes: No symptom reported Pulmonary/Respiratory: No symptom reported Cardiovascular: No symptom reported Gastrointestinal: No symptom reported Genitourinary: No symptom reported Musculoskeletal: No symptom reported Skin: No symptom reported Psychiatric: No symptom reported Endocrine: No symptom reported Hemotologic/Lymphatic: No symptom reported H&P Exam Vital Signs Vital Signs Date Time Temp Pulse Resp B/P (MAP) Pulse Ox O2 Delivery O2 Flow Rate FiO2 05/11/24 00:00 86 13 94/55 (68) 94 05/10/24 19:30 Room Air* 0 21 05/10/24 13:41 98.8 98.8 General Appeara: Well developed, Well nourished, Normal Appearance Head Exam: Normal inspection Neck Exam: Normal inspection, Non-tender, Normal alignment Eye Exam: bilateral eye Normal inspection, bilateral eye PERRL, bilateral eye EOMI Ear Exam: bilateral ear Auricle normal Nasal Exam: Normal inspection Mouth: Normal Inspection Pulmonary/Respiratory: Normal inspection, Normal breath sounds, Chest non- tender, Lungs clear Cardiovascular/Chest: Normal inspection, Regular rate, Normal Rhythm Peripheral Pulses: 2+ dorsalis pedis (R), 2+ dorsalis pedis (L), 2+ Radial (R), 2+ Radial (L) Abdominal Exam: Normal bowel sounds, Soft, No tenderness Rectal Exam: Deferred SOLUTION PROFESSIONAL Exam: Normal hearing, Normal speech, PERRL Neuro/Mental St: Alert, Oriented Appearance: Appropriate appearance, Appropriate insight Thoughts/Psych: Normal thought pattern Skin Exam: Normal inspection, Normal color, Warm/dry Labs/Xrays Labs Test 05/11/24 00:26 05/10/24 22:35 05/10/24 22:32 05/10/24 22:15 Range/Units POC Glucose 87 70-106 mg/dl Troponin I High Sensitivity 71 *H </=54 ng/L Influenza Type A Antigen Negative Negative Influenza Type B Antigen Negative Negative SARS-CoV-2 Antigen (Rapid) Negative NEGATIVE Test 05/10/24 13:07 Range/Units White Blood Count 3.1 L 4.4-10.8 10^3/uL Red Blood Count 3.09 L 4.5-5.90 10^6/uL Hemoglobin 9.9 L 13.5-17.5 g/dL Hematocrit 30.9 L 41.0-53.0 % Mean Corpuscular Volume 100.2 H 80.0-100.0 fL Mean Corpuscular Hemoglobin 32.1 H 28.0-32.0 pg Mean Corpuscular Hemoglobin Concent 32.0 32.0-36.0 g/dL Red Cell Distribution Width 18.3 H 11.8-14.3 % Platelet Count 60 L 140-450 10^3/uL Mean Platelet Volume 9.0 6.9-10.8 fL Neutrophils (%) (Auto) 60.9 37.0-80.0 % Lymphocytes (%) (Auto) 25.9 10.0-50.0 % Monocytes (%) (Auto) 9.3 0.0-12.0 % Eosinophils (%) (Auto) 2.3 0.0-7.0 % Basophils (%) (Auto) 1.6 0.0-2.0 % Neutrophils # (Auto) 1.9 1.6-8.6 10 ^3/uL Lymphocytes # (Auto) 0.8 0.4-5.4 10 ^3/uL Monocytes # (Auto) 0.3 0-1.3 10 ^3/uL Eosinophils # (Auto) 0.1 0-0.8 10 ^3/uL Basophils # (Auto) 0.1 0-0.2 10 ^3/uL Nucleated Red Blood Cells 0.4 % B-Type Natriuretic Peptide 562.89 0-100 pg/mL Assessment/Plan Problem List: (1) Hyperkalemia (2) Hypoglycemia (3) End stage renal disease on dialysis (4) Elevated troponin Plan 64 yo male with known history of DM, ESRD, CHF, hypothyroidism presents to the hospital with generalized weakness and missed hemodialysis x 1 week. Patient found to have 1. Hyperkalemia 2. Hypoglycemia 3. ESRD missed hemodialysis 4. Elevated troponin 5. Lactic acidosis admitted to telemetry Nephrology consultation , patient started on hemodialysis in the ED Cardiology consultation , serial troponin levels Monitor BMP Restart home medications Blood cultures x2 , urinalysis Monitor glucose levels ac & hs Empiric broad spectrum IV antibiotic Ceftriaxone Discussed all above with patient who verbalizes agreement and understanding of care plan. All questions were answered. Discussed care plan with nurse Tori RN. Discussed assessment and care plan with supervising /admitting MD Dr. Guadrado. Plan discussed with: Patient, Other Code Visit Code Visit Total Time (mins): 45 Additional Comments Additional Comments Additional Comments Patient's chart is reviewed and discussed with the nurse practitioner. Patient is evaluated and admitted by nurse practitioner earlier today. I agree with the nurse practitioner's evaluation, documentation, assessment and care plan as outlined. Patient is evaluated by me this afternoon. NICKY LEDESMA PHYSICIAN OFFICE SPECIALIST May 11, 2024 01:01 GIOVANNA AQUINO MD May 11, 2024 12:57
[2024-05-11 01:02] LABS: BUN/Creatinine Ratio 4.3 (10.0-20.0); Glucose 76 mg/dL (74-106)
[2024-05-11 01:03] LABS: Blood Urea Nitrogen 53 mg/dL (9-23)
[2024-05-11] MEDS: LEVOTHYROXINE SODIUM 50 MCG TAB PO SCH (05:13)
[2024-05-11] MEDS: PANTOPRAZOLE 40 MG TAB PO SCH (05:14)
[2024-05-11] MEDS: D5W/SOD CHLO 0.9% 1,000 ML IV ONE (06:50)
[2024-05-11 06:58] LABS: Basophils # (auto) 0 10 ^3/uL (0-0.2); Eosinophils # (auto) 0 10 ^3/uL (0-0.8); Hemoglobin 8.9 g/dL (13.5-17.5); Lymphocytes # (auto) 0.3 10 ^3/uL (0.4-5.4); Monocytes # (auto) 0.3 10 ^3/uL (0-1.3); Neutrophils # (auto) 2.3 10 ^3/uL (1.6-8.6)
[2024-05-11 07:00] LABS: Basophils % (auto) 1.2 % (0.0-2.0); Eosinophils % (auto) 1.3 % (0.0-7.0); Mean Corpuscular Hemoglobin 30.9 pg (28.0-32.0); Mean Corpuscular Hgb Conc. 33.1 g/dL (32.0-36.0); Mean Corpuscular Volume 93.3 fL (80.0-100.0); Monocytes % (auto) 10.2 % (0.0-12.0); Neutrophils % (auto) 77.3 % (37.0-80.0); Nucleated Red Blood Cells % 0.2 %; Platelet Count (auto) 61 10^3/uL (140-450); Red Blood Cells 2.89 10^6/uL (4.5-5.90); Red Cell Distribution Width 16.7 % (11.8-14.3)
[2024-05-11 07:07] LABS: Anion Gap 16 (5-15); Carbon Dioxide 22 mmol/L (20-31); Chloride 100 mmol/L (98-107); Potassium 4.8 mmol/L (3.5-5.1); Sodium 138 mmol/L (136-145)
[2024-05-11 07:08] LABS: Calcium 7.6 mg/dL (8.7-10.4)
[2024-05-11 07:13] LABS: Glucose 83 mg/dL (74-106)
[2024-05-11 07:20] LABS: BUN/Creatinine Ratio 5.7 (10.0-20.0); Blood Urea Nitrogen 69 mg/dL (9-23)
[2024-05-11 07:25] LABS: Lactic Acid w/Reflex 3.3 mmol/L (0.4-2.0)
[2024-05-11] MEDS: cefTRIAXone 1GM/50ML D5W 50 ML IV SCH (10:04)
[2024-05-11] MEDS: CHOLECALCIFEROL (VITD3) 1,000UNIT=25mCg TAB PO SCH (10:07)
[2024-05-11] MEDS: ATORVASTATIN 20 MG TAB PO SCH (10:08)
[2024-05-11] MEDS ORDERED: VANCOMYCIN PER PHARMACY 0 MG IV SCH (12:00)
[2024-05-11] MEDS: D5W/SOD CHL 0.45% 1,000 ML IV SCH (12:00)
[2024-05-11] MEDS: VANCOMYCIN 1GM/200ML PREMIX 200 ML IV SCH (13:32)
--- NOTE | 2024-05-11 14:25 | DVHPN2 ---
Progress Note - Dictate Date Seen: May 11, 2024 Medical Necessity Reason Pt with a Central, PICC or Fol: No Subjective tolerated stat HD yesterday labs reviewed patient feels better vital signs Vital Sign Date Time Temp Pulse Resp B/P (MAP) Pulse Ox O2 Delivery O2 Flow Rate FiO2 05/11/24 09:00 97.4 87 17 93/56 (68) 97 97.4 05/11/24 08:00 Nasal Cannula* 2 28 Total Intake and Output 05/10/24 05/10/24 05/11/24 15:00 23:00 07:00 Intake Total 300 ml Balance 300 ml medications Current Medications Medications Dose Ordered Sig/Nikhil Route Start Time Stop Time Status Last Admin Dose Admin Nitroglycerin 0.4 mg Q5MINP PRN SL 05/10/24 19:00 Morphine Sulfate 2 mg Q30M PRN IV 05/10/24 19:00 Ondansetron HCl 4 mg Q4HPRN PRN IV 05/10/24 19:00 Acetaminophen 500 mg Q6HP PRN PO 05/10/24 19:00 Acetaminophen/ Hydrocodone Bitart 1 tab Q4HPRN PRN PO 05/10/24 19:00 05/11/24 05:13 1 TAB Pantoprazole Sodium 40 mg DAILY@0600 PO 05/11/24 06:00 05/11/24 05:14 40 MG Levothyroxine Sodium 150 mcg QAM PO 05/11/24 07:00 05/11/24 05:13 150 MCG Atorvastatin Calcium 40 mg DAILY PO 05/11/24 10:00 05/11/24 10:08 40 MG Cholecalciferol 1,000 unit DAILY PO 05/11/24 10:00 05/11/24 10:07 1,000 UNIT Diagnostic Test (Pha) 1 strip ACHS 05/10/24 22:00 05/11/24 11:30 1 STRIP Insulin Human Regular ACHS SC 05/10/24 22:00 Dextrose 50 ml UD PRN IV 05/10/24 19:00 Zirconium Oxide 10 gm TID PO 05/10/24 22:00 05/12/24 21:59 Ceftriaxone Sodium 50 ml @ 100 mls/hr DAILY@09 IV 05/11/24 09:00 05/11/24 10:04 100 MLS/HR Dextrose/Sodium Chloride 1,000 ml @ 50 mls/hr Q20H IV 05/11/24 12:00 05/11/24 12:00 50 MLS/HR Vancomycin HCl 0 ml @ 0 mls/hr UD IV 05/11/24 12:00 objective male mild jitteriness AAOx3 no mumur Left arm AVF no pitting edema soft ND abdomen laboratory and microbiology Laboratory Tests 05/11/24 06:00 Test 05/11/24 06:00 Range/Units Serum Glucose 83 74-106 mg/dL Assessment/Plan ESRD hyperkalemia uremia due to noncompliance anemia due to CKD metabolic acidosis lactic acidosis HD tomorrow on vanco rec check trough levels renal diet when stable start potassium binder Plan discussed with: Patient ROCKY ORTEGA MD May 11, 2024 14:25
[2024-05-12] VITALS (8 sets, daily range): BP systolic 92–136; BP diastolic 55–82; PULSE 71–97; RESP 17–20; TEMP 97.8–98.3; O2SAT 94–99
[2024-05-12 06:13] LABS: Basophils # (auto) 0 10 ^3/uL (0-0.2); Basophils % (auto) 0.4 % (0.0-2.0); Eosinophils # (auto) 0.2 10 ^3/uL (0-0.8); Eosinophils % (auto) 6.2 % (0.0-7.0); Hematocrit 26.9 % (41.0-53.0); Hemoglobin 8.9 g/dL (13.5-17.5); Lymphocytes # (auto) 0.2 10 ^3/uL (0.4-5.4); Lymphocytes % (auto) 7.9 % (10.0-50.0); Mean Corpuscular Hemoglobin 31.4 pg (28.0-32.0); Mean Corpuscular Hgb Conc. 33.2 g/dL (32.0-36.0); Mean Corpuscular Volume 94.6 fL (80.0-100.0); Monocytes # (auto) 0.2 10 ^3/uL (0-1.3); Neutrophils # (auto) 1.8 10 ^3/uL (1.6-8.6); Neutrophils % (auto) 75.5 % (37.0-80.0); Nucleated Red Blood Cells % 0.2 %; Platelet Count (auto) 62 10^3/uL (140-450); Red Blood Cells 2.84 10^6/uL (4.5-5.90); Red Cell Distribution Width 16.8 % (11.8-14.3); White Blood Cell 2.4 10^3/uL (4.4-10.8)
[2024-05-12 06:29] LABS: Chloride 102 mmol/L (98-107); Sodium 136 mmol/L (136-145)
[2024-05-12 06:30] LABS: Anion Gap 13 (5-15); Calcium 6.7 mg/dL (8.7-10.4); Carbon Dioxide 21 mmol/L (20-31)
[2024-05-12 06:35] LABS: BUN/Creatinine Ratio 5.4 (10.0-20.0); Blood Urea Nitrogen 71 mg/dL (9-23); Glucose 71 mg/dL (74-106)
[2024-05-12] MEDS ORDERED: SODIUM CHL 0.9% 1000 ML BAG XX ONE (07:00)
--- NOTE | 2024-05-12 07:47 | DVHSR ---
APPROVED REPORT EXAM: Two-dimensional and M-mode echocardiogram with Doppler and color Doppler. Blood Pressure: 93/56 mmHg INDICATION Elevated trop RISK FACTORS Obesity: Height: 5'7", Weight: 251 DIMENSIONS LVDd4.8 (3.8-5.7cm)LA (2D)4.8 (1.9-4.0cm)Aortic Root3.5 (2.0-3.7cm) LVDs3.9 (2.5-4.0cm)LA (MM) (1.9-4.0cm)Aortic Cusp Exc1.6 (1.5-2.0cm) EF (%) 40.0 (55-70%)Rt. Atrium4.5 (1.9-4.0cm)Asc. Aorta cm IVSd1.1 (0.7-1.1cm)RV (D) (1.8-2.4cm) PWd1.1 (0.7-1.1cm) Mitral Valve MitralMitral Stenosis E wave0.72m/sMV Mean GR.mmHg A wave0.67m/sMV Peak GR.mmHg E/A ratio1.12D MVAcm2 DECEL [id number] 1/2 Timems Aortic Valve Aortic ValveAortic Stenosis V11.01m/Stephane Mean GR.3mmHg V21.18m/Stephane Peak GR.6mmHg LVOT Diameter2.4 (1.8-2.4cm)Doppler AVA3.87cm2 Pulmonic Valve V21.13m/s Tricuspid Valve TR Velocity2.62m/s [id number] Other Information Technically limited study due to body habitus. Conclusion lvef 45% by visual estimate LV dilated mild normal rv function trivial pericardial effusion noted no severe valve abnormaliites noted left atrium enlarged
[2024-05-12 08:42] LABS: Hepatitis B Surface Antigen Negative (Negative)
[2024-05-12 09:04] LABS: Hepatitis A Ab IgM Negative
[2024-05-12 09:05] LABS: Hepatitis B Core IgM Negative; Hepatitis C Antibody Negative (Negative)
[2024-05-12] MEDS ORDERED: ALBUMIN 25% 100 ML IV ONE (13:15)
[2024-05-12] MEDS ORDERED: MID10T PO (13:28)
--- NOTE | 2024-05-12 16:57 | DVHPN2 ---
Progress Note Date Seen: May 12, 2024 Medical Necessity Reason Pt with a Central, PICC or Fol: No Subjective Patient reports: No new complaints, Feels better Review of Systems: HEENT:Normal, CVS:Normal, RESPIRATORY:Normal, GI:Normal, :Normal, MSK:Normal, NEURO:Normal Objective vital signs Vital Sign Date Time Temp Pulse Resp B/P (MAP) Pulse Ox O2 Delivery O2 Flow Rate FiO2 05/12/24 13:00 77 103/75 (84) 05/12/24 09:25 98.3 17 96 98.3 05/12/24 08:00 Nasal Cannula* 2 28 Total Intake and Output 05/11/24 05/11/24 05/12/24 15:00 23:00 07:00 Intake Total 650 ml 1000 ml 1500 ml Output Total 0 ml Balance 650 ml 1000 ml 1500 ml medications Current Medications Medications Dose Ordered Sig/Nikhil Route Start Time Stop Time Status Last Admin Dose Admin Nitroglycerin 0.4 mg Q5MINP PRN SL 05/10/24 19:00 Morphine Sulfate 2 mg Q30M PRN IV 05/10/24 19:00 Ondansetron HCl 4 mg Q4HPRN PRN IV 05/10/24 19:00 Acetaminophen 500 mg Q6HP PRN PO 05/10/24 19:00 Acetaminophen/ Hydrocodone Bitart 1 tab Q4HPRN PRN PO 05/10/24 19:00 05/11/24 05:13 1 TAB Pantoprazole Sodium 40 mg DAILY@0600 PO 05/11/24 06:00 05/12/24 05:33 40 MG Levothyroxine Sodium 150 mcg QAM PO 05/11/24 07:00 05/12/24 05:33 150 MCG Atorvastatin Calcium 40 mg DAILY PO 05/11/24 10:00 05/12/24 09:11 40 MG Cholecalciferol 1,000 unit DAILY PO 05/11/24 10:00 05/12/24 09:11 1,000 UNIT Diagnostic Test (Pha) 1 strip ACHS 05/10/24 22:00 05/12/24 11:56 1 STRIP Insulin Human Regular ACHS SC 05/10/24 22:00 Dextrose 50 ml UD PRN IV 05/10/24 19:00 Ceftriaxone Sodium 50 ml @ 100 mls/hr DAILY@09 IV 05/11/24 09:00 05/12/24 09:11 100 MLS/HR Vancomycin HCl 0 ml @ 0 mls/hr UD IV 05/11/24 12:00 Midodrine 10 mg TID@0600,1200,1800 PO 05/12/24 18:00 Examination: GENERAL:Normal, HEENT:Normal, NECK:Normal, LUNGS:Normal, CVS:Normal, ABDOMEN:Normal, MSK:Abnormal, SKIN:Abnormal, NEURO:Normal, :Normal laboratory and microbiology Laboratory Tests 05/12/24 05:38 Test 05/12/24 05:38 Range/Units Serum Glucose 71 L 74-106 mg/dL Microbiology Date/Time Source Procedure Growth Status 05/10/24 22:32 Blood Blood Culture - Preliminary NO GROWTH AFTER 24 HOURS OF INCUBATION. Resulted Problem List/Assessment/Plan Problem List/Assessment/Plan ESRD hyperkalemia uremia due to noncompliance anemia due to CKD metabolic acidosis lactic acidosis recs seen on HD today,infiltrated access today by moving during HD renal diet start potassium binder Plan discussed with: Patient TOREY QUINTERO MD May 12, 2024 16:57
[2024-05-12] MEDS: MIDODRINE HCL 10 MG TAB PO SCH (17:47)
--- NOTE | 2024-05-12 18:00 | DVH ---
EXAM: CT HEAD WITHOUT CONTRAST HISTORY: aloc COMPARISON: CT CHEST WITHOUT CONTRAST on DOS: 07/07/23 TECHNIQUE: Axial images were obtained and reformatted in coronal and sagittal planes. All CT scans at this medical facility are performed using dose modulation techniques as appropriate t o a performed exam including the following: Automated exposure control was utilized; adjustment of th e MA and/or KV according to patient size; and use of iterative reconstruction technique. CT Dose: CTDI volume is 67.32 mGy. Dose-length product is 1191.58 mGy*cm FINDINGS: Supratentorial Region: No evidence for large acute territorial ischemia. No intracranial hemorrhage is noted. Posterior Fossa: No acute abnormality. Several subcentimeter calcifications are seen in the left cer ebellar lobe. Brainstem: Unremarkable. Sellar/Suprasellar Region: Unremarkable. Ventricles, Cisterns, Sulci: Age-appropriate. Orbits: The bilateral optic globes are unremarkable. There is dehiscence of the bilateral lamina pap yracea that may reflect old blowout orbital injuries. Paranasal Sinuses: Unremarkable. Mastoid Air Cells: Unremarkable. Vasculature: Unremarkable. Bones/Soft Tissues: No acute abnormality. Other: None. IMPRESSION: 1. No acute intracranial process. 2. Several subcentimeter calcification in the right occipital lobe likely benign dystrophic in nature .
--- NOTE | 2024-05-12 18:56 | DVHPN2 ---
Progress Note - Dictate Date Seen: May 12, 2024 Medical Necessity Reason Pt with a Central, PICC or Fol: No Subjective Patient's blood sugars have stabilized. Hyperkalemia corrected. Underwent hemodialysis once again today. Patient is ready to be discharged however his sister wants him to be placed at a senior living facility for physical therapy. Patient gets outpatient [facility] Sunday schedule vital signs Vital Sign Date Time Temp Pulse Resp B/P (MAP) Pulse Ox O2 Delivery O2 Flow Rate FiO2 05/12/24 17:00 83 19 136/82 (100) 94 05/12/24 09:25 98.3 98.3 05/12/24 08:00 Nasal Cannula* 2 28 Total Intake and Output 05/11/24 05/11/24 05/12/24 15:00 23:00 07:00 Intake Total 650 ml 1000 ml 1500 ml Output Total 0 ml Balance 650 ml 1000 ml 1500 ml medications Current Medications Medications Dose Ordered Sig/Nikhil Route Start Time Stop Time Status Last Admin Dose Admin Nitroglycerin 0.4 mg Q5MINP PRN SL 05/10/24 19:00 Morphine Sulfate 2 mg Q30M PRN IV 05/10/24 19:00 Ondansetron HCl 4 mg Q4HPRN PRN IV 05/10/24 19:00 Acetaminophen 500 mg Q6HP PRN PO 05/10/24 19:00 Acetaminophen/ Hydrocodone Bitart 1 tab Q4HPRN PRN PO 05/10/24 19:00 05/11/24 05:13 1 TAB Pantoprazole Sodium 40 mg DAILY@0600 PO 05/11/24 06:00 05/12/24 05:33 40 MG Levothyroxine Sodium 150 mcg QAM PO 05/11/24 07:00 05/12/24 05:33 150 MCG Atorvastatin Calcium 40 mg DAILY PO 05/11/24 10:00 05/12/24 09:11 40 MG Cholecalciferol 1,000 unit DAILY PO 05/11/24 10:00 05/12/24 09:11 1,000 UNIT Diagnostic Test (Pha) 1 strip ACHS 05/10/24 22:00 05/12/24 17:00 1 STRIP Insulin Human Regular ACHS SC 05/10/24 22:00 Dextrose 50 ml UD PRN IV 05/10/24 19:00 Ceftriaxone Sodium 50 ml @ 100 mls/hr DAILY@09 IV 05/11/24 09:00 05/12/24 09:11 100 MLS/HR Vancomycin HCl 0 ml @ 0 mls/hr UD IV 05/11/24 12:00 Midodrine 10 mg TID@0600,1200,1800 PO 05/12/24 18:00 05/12/24 17:47 10 MG objective Comfortable in bed. Alert awake oriented to place and person. Heart regular rate and rhythm S1-S2. Lungs without rales wheezes. Abdomen obese soft positive bowel sounds. Extremities no significant edema. laboratory and microbiology Laboratory Tests 05/12/24 05:38 Test 05/12/24 05:38 Range/Units Serum Glucose 71 L 74-106 mg/dL Assessment/Plan Continue to hold insulin for hyperglycemia. Continue hemodialysis per Nephrology recommendations. Continue rest of supportive care and treatment as he is on. Given his blood pressure is on the low side I will start him on midodrine. Patient however remains asymptomatic. We will have social Service consultation for possible senior living facility placement as for sister request if he qualifies after physical therapy evaluation. Problems(with codes): (1) End stage renal disease on dialysis (2) Hypoglycemia (3) Elevated troponin (4) Uncontrolled diabetes mellitus (5) Hyperkalemia Plan discussed with: Other GIOVANNA AQUINO MD May 12, 2024 18:56
[2024-05-12] MEDS: EPOETIN ALFA-EPBX 10,000 UNIT/1ML VIAL SC ONE (21:48)
[2024-05-13 01:00] VITALS: BP 129/83; PULSE 83; RESP 18; TEMP 98; O2SAT 96
[2024-05-13 05:00] VITALS: BP 128/89; PULSE 89; RESP 18; TEMP 98; O2SAT 100
[2024-05-13 06:24] LABS: Anion Gap 13 (5-15); Carbon Dioxide 24 mmol/L (20-31); Chloride 99 mmol/L (98-107); Potassium 4.9 mmol/L (3.5-5.1); Sodium 136 mmol/L (136-145)
[2024-05-13 06:26] LABS: Calcium 7.3 mg/dL (8.7-10.4)
[2024-05-13 06:30] LABS: BUN/Creatinine Ratio 4.9 (10.0-20.0); Glucose 59 mg/dL (74-106)
[2024-05-13 06:33] LABS: Blood Urea Nitrogen 52 mg/dL (9-23)
[2024-05-13 07:34] LABS: Potassium 5.7 mmol/L (3.5-5.1)
[2024-05-13 08:00] VITALS: PULSE 71
[2024-05-13 09:00] VITALS: BP 99/72; PULSE 78; RESP 19; TEMP 97.8; O2SAT 96
--- NOTE | 2024-05-13 09:48 | MEDREC ---
[facility] Intervention Section I [facility] Intervention: Review courses of therapy (PLEASE CONSIDER D/C ANTIBIOTIC(S) IN ABSENCE OF BACTERIAL INFECTION - (NO LEUKOCYTOSIS, NO FEVER)) JENNIFER BURNS PHARMACIST May 13, 2024 09:48
[2024-05-13] MEDS ORDERED: SODI5PAK PO (11:54)
[2024-05-13 12:25] VITALS: BP 99/72; PULSE 78; RESP 19; TEMP 97.8; O2SAT 96
[2024-05-13 12:44] LABS: Urine Bacteria FEW /hpf (None Seen); Urine Blood 2+ /uL (Negative); Urine Clarity Turbid (Clear); Urine Protein, UAD 3+ (Negative); Urine Urobilinogen Normal (Negative); Urine WBC 190 /hpf (0 - 3)
[2024-05-13 12:45] LABS: Urine Color Light-Yellow (Yellow)
--- NOTE | 2024-05-13 12:51 | ECG ---
[facility] Test Date: 2024-05-10 Test Time: 12:51:11 Pat Name: GLO VASQUEZ Department: ER Room: 0288T A Gender: M Quality Control Lead: SALENA : 1960 Requested By: ANTHONY SALEH Order Number: [id number] Reading MD: Aakash Monte Measurements Intervals [place] Rate: 90 P: 0 TN: 0 QRS: -92 QRSD: 248 T: 86 QT: 516 QTc: 632 Interpretive Statements undetermined rhythm. Wide complex Complexes suggest ventricular origin. Consider accelerated idioventricular rhythm Electronically Signed On 05-16-2024 16:51:51 PST by Aakash Monte Please click the below link to view image of tracing.
[2024-05-13 13:00] VITALS: BP 118/66; PULSE 73; RESP 19; TEMP 97.5; O2SAT 97
--- NOTE | 2024-05-13 16:46 | DVHPN2 ---
Progress Note Date Seen: May 13, 2024 Medical Necessity Reason Pt with a Central, PICC or Fol: No Subjective Patient reports: No new complaints Objective vital signs Vital Sign Date Time Temp Pulse Resp B/P (MAP) Pulse Ox O2 Delivery O2 Flow Rate FiO2 05/13/24 13:00 97.5 73 19 118/66 (83) 97 97.5 05/13/24 08:00 Nasal Cannula* 2 28 Total Intake and Output 05/12/24 05/12/24 05/13/24 15:00 23:00 07:00 Intake Total 350 ml 700 ml 475 ml Output Total 100 ml Balance 350 ml 600 ml 475 ml medications Current Medications Medications Dose Ordered Sig/Nikhil Route Start Time Stop Time Status Last Admin Dose Admin Nitroglycerin 0.4 mg Q5MINP PRN SL 05/10/24 19:00 Morphine Sulfate 2 mg Q30M PRN IV 05/10/24 19:00 Ondansetron HCl 4 mg Q4HPRN PRN IV 05/10/24 19:00 Acetaminophen 500 mg Q6HP PRN PO 05/10/24 19:00 Acetaminophen/ Hydrocodone Bitart 1 tab Q4HPRN PRN PO 05/10/24 19:00 05/13/24 06:03 1 TAB Pantoprazole Sodium 40 mg DAILY@0600 PO 05/11/24 06:00 05/13/24 05:57 40 MG Levothyroxine Sodium 150 mcg QAM PO 05/11/24 07:00 05/13/24 05:57 150 MCG Atorvastatin Calcium 40 mg DAILY PO 05/11/24 10:00 05/13/24 09:24 40 MG Cholecalciferol 1,000 unit DAILY PO 05/11/24 10:00 05/13/24 09:24 1,000 UNIT Diagnostic Test (Pha) 1 strip ACHS 05/10/24 22:00 05/13/24 11:30 1 STRIP Insulin Human Regular ACHS SC 05/10/24 22:00 Dextrose 50 ml UD PRN IV 05/10/24 19:00 Ceftriaxone Sodium 50 ml @ 100 mls/hr DAILY@09 IV 05/11/24 09:00 05/13/24 09:24 100 MLS/HR Vancomycin HCl 0 ml @ 0 mls/hr UD IV 05/11/24 12:00 Midodrine 10 mg TID@0600,1200,1800 PO 05/12/24 18:00 05/13/24 12:13 10 MG laboratory and microbiology Laboratory Tests 05/13/24 04:50 05/12/24 05:38 Test 05/13/24 04:50 Range/Units Serum Glucose 59 L 74-106 mg/dL Microbiology Date/Time Source Procedure Growth Status 05/10/24 22:32 Blood Blood Culture - Preliminary NO GROWTH AFTER 48 HOURS OF INCUBATION. Resulted Problem List/Assessment/Plan Problem List/Assessment/Plan ESRD hyperkalemia anemia due to CKD metabolic acidosis lactic acidosis recs HD tomorrow if still here renal diet Plan discussed with: Patient TOREY QUINTERO MD May 13, 2024 16:46
--- NOTE | 2024-05-15 16:53 | DVHDS2 ---
Discharge Summary Date of Admission May 10, 2024 at 18:48 Date of Discharge: May 13, 2024 Labs/Diagnostic Data: Laboratory Results Test 05/13/24 11:45 05/13/24 11:10 05/13/24 04:50 05/12/24 05:38 POC Glucose 63 mg/dl (70-106) Urine Color Light-yellow (Yellow) Urine Clarity Turbid (Clear) Urine pH 7.0 (5.0-9.0) Urine Specific [place] 1.020 (1.001-1.035) Urine Protein 3+ (Negative) Urine Ketones Negative (Negative) Urine Blood 2+ /uL (Negative) Urine Nitrite Negative (Negative) Urine Bilirubin Negative (Negative) Urine Urobilinogen Normal mg/dL (Negative) Urine Leukocyte Esterase 3+ /uL (Negative) Urine RBC 9 /hpf (0 - 3) Urine WBC 190 /hpf (0 - 3) Urine Squamous Epithelial Cells Few /hpf (<5) Urine Bacteria Few /hpf (None Seen) Urine Glucose 3+ mg/dL (Normal) Sodium Level 136 mmol/L (136-145) Potassium Level 4.9 mmol/L (3.5-5.1) Chloride Level 99 mmol/L (98-107) Carbon Dioxide Level 24 mmol/L (20-31) Anion Gap 13 (5-15) Blood Urea Nitrogen 52 mg/dL (9-23) Creatinine 10.64 mg/dL (0.700-1.30) Glomerular Filtration Rate Calc 5 mL/min (>90) BUN/Creatinine Ratio 4.9 (10.0-20.0) Serum Glucose 59 mg/dL (74-106) Calcium Level 7.3 mg/dL (8.7-10.4) Random Vancomycin Level 19.1 ug/mL (5-10) White Blood Count 2.4 10^3/uL (4.4-10.8) Red Blood Count 2.84 10^6/uL (4.5-5.90) Hemoglobin 8.9 g/dL (13.5-17.5) Hematocrit 26.9 % (41.0-53.0) Mean Corpuscular Volume 94.6 fL (80.0-100.0) Mean Corpuscular Hemoglobin 31.4 pg (28.0-32.0) Mean Corpuscular Hemoglobin Concent 33.2 g/dL (32.0-36.0) Red Cell Distribution Width 16.8 % (11.8-14.3) Platelet Count 62 10^3/uL (140-450) Mean Platelet Volume 9.0 fL (6.9-10.8) Neutrophils (%) (Auto) 75.5 % (37.0-80.0) Lymphocytes (%) (Auto) 7.9 % (10.0-50.0) Monocytes (%) (Auto) 10.0 % (0.0-12.0) Eosinophils (%) (Auto) 6.2 % (0.0-7.0) Basophils (%) (Auto) 0.4 % (0.0-2.0) Neutrophils # (Auto) 1.8 10 ^3/uL (1.6-8.6) Lymphocytes # (Auto) 0.2 10 ^3/uL (0.4-5.4) Monocytes # (Auto) 0.2 10 ^3/uL (0-1.3) Eosinophils # (Auto) 0.2 10 ^3/uL (0-0.8) Basophils # (Auto) 0 10 ^3/uL (0-0.2) Nucleated Red Blood Cells 0.2 % Lactic Acid Level 0.8 mmol/L (0.4-2.0) Troponin I High Sensitivity 85 ng/L (</=54) Test 05/10/24 22:15 05/10/24 13:07 Influenza Type A Antigen Negative (Negative) Influenza Type B Antigen Negative (Negative) SARS-CoV-2 Antigen (Rapid) Negative (NEGATIVE) B-Type Natriuretic Peptide 562.89 pg/mL (0-100) Hepatitis A IgM Antibody Negative Hepatitis B Surface Antigen Negative (Negative) Hepatitis B Core IgM Antibody Negative Hepatitis C Antibody Negative (Negative) Other Laboratory Tests 05/13/24 04:50 05/12/24 05:38 Brief Hx & Hospital Course: Mr. Bakari Wong is a 64 yo male with a history of DM, ESRD on HD , CHF, Hypothyroidism. Patient presents with generalized weakness. Patient reports he missed hemodialysis x 1 week due to diarrhea. Patient denies any further diarrhea. Patient denies any chest pain, nausea, vomiting, fevers chills, headaches, dizziness, blurry vision, abdominal pain, constipation. Patient K level 8.5, 6.7, BUN 138/19.21, troponin levels 67, 71, lactic level 5.0. Patient admitted for further evaluation and treatment. He is admitted to the hospital. He has hyperkalemia is corrected. He underwent hemodialysis in the hospital. Patient received IV fluids for his hypoglycemia. Once his blood sugars have improved fluids have been discontinued. Patient is eating and his blood sugars remained in normal range. Patient advised completed two to stop any insulin or any other diabetic medications at home. Meantime patient is he is feeling better back to baseline normal status. Having had necessary workup and evaluations and his symptoms being resolved it is felt that he could be safely discharged home. Patient is to continue his 3 times a week dialysis as he is doing prior to this admission. Patient verbalized understanding of this, verbalized understanding of his hospital diagnosis, treatment he received, discharge instructions and agree with the discharge follow-up plan of care. Operations or Procedures EXAM: Two-dimensional and M-mode echocardiogram with Doppler and color Doppler. Blood Pressure: 93/56 mmHg INDICATION Elevated trop RISK FACTORS Obesity: Height: 5'7", Weight: 251 DIMENSIONS LVDd 4.8 (3.8-5.7cm) LA (2D) 4.8 (1.9-4.0cm) Aortic Root 3.5 (2.0- 3.7cm) LVDs 3.9 (2.5-4.0cm) LA (MM) (1.9-4.0cm) Aortic Cusp Exc 1.6 (1.5- 2.0cm) EF (%) 40.0 (55-70%) Rt. Atrium 4.5 (1.9-4.0cm) Asc. Aorta cm IVSd 1.1 (0.7-1.1cm) RV (D) (1.8-2.4cm) PWd 1.1 (0.7-1.1cm) Mitral Valve Mitral Mitral Stenosis E wave 0.72m/s MV Mean GR. mmHg A wave 0.67m/s MV Peak GR. mmHg E/A ratio 1.1 2D MVA cm2 DECEL Time 156ms PRESS 1/2 Time ms Aortic Valve Aortic Valve Aortic Stenosis V1 1.01m/s AO Mean GR. 3mmHg V2 1.18m/s AO Peak GR. 6mmHg LVOT Diameter 2.4 (1.8-2.4cm) Doppler YASH 3.87cm2 Pulmonic Valve V2 1.13m/s Tricuspid Valve TR Velocity 2.62m/s RVSP 30mmHg Other Information Technically limited study due to body habitus. Conclusion lvef 45% by visual estimate LV dilated mild normal rv function trivial pericardial effusion noted no severe valve abnormaliites noted left atrium enlarged SIGNED BY: GUERLINE WESLEY MD SIGNED DATE/TIME: 05/12/24 4484 Condition at Discharge: Stable Final Diagnosis/Problems List ESRD on HD, missed dialysis Problems List: (1) Hyperkalemia Status: Acute (2) End stage renal disease on dialysis Status: Acute (3) Hypoglycemia (4) Elevated troponin Discharge Disposition: Home with Health Services Discharge Instruct/Medications Diet: Consistent carbohydrate, Cardiac 2g Na,low cholest Activity: No Restrictions, As Tolerated Follow Up/Referral: dialysis 3 x week and follow with PCP 2 weeks Medications: as prescribed and home medications per discharge list New Medications: Midodrine HCl (Midodrine HCl) 10 Mg Tab 10 MG PO TID, #60 TAB Sodium Zirconium Cyclosilicate (Lokelma) 5 Gm Obed 5 GM PO BID, #20 PACK Continued Medications: Alendronate Sodium (Alendronate Sodium) 70 Mg Tab 1 TAB PO QWEEKLY, #4 TAB 3 Refills Atorvastatin Calcium (Lipitor) 40 Mg Tab 1 TAB PO DAILY, #30 TAB 5 Refills Cholecalciferol (Vitamin D3) 1,000 Unit Cap 1 CAP PO DAILY, CAP Clobetasol Propionate Emulsion (Clobetasol Propionate) 0.05 % Aer 0.05 % EX PRN, AER Famotidine (Pepcid Tablet) 20 Mg Tb 20 MG PO DAILY, #30 Furosemide (Lasix) 40 Mg Tab 40 MG PO DAILY for 30 Days, #30 TAB Levothyroxine Sodium (Levothyroxine Sodium) 150 Mcg Tab 1 TAB PO DAILY, #30 TAB 5 Refills Metoprolol Succinate (Toprol Xl) 25 Mg Tab 1 TAB PO DAILY, #30 TAB 5 Refills Discontinued Medications: Amlodipine Besylate (Norvasc Tablet) 5 Mg Tb 5 MG PO DAILY for 30 Days, #30 TAB Atorvastatin Calcium (Atorvastatin Calcium) 10 Mg Tab 10 MG PO HS, TAB Baclofen (Baclofen) 10 Mg Tab 10 MG PO BID, TAB Diclofenac (Zorvolex) 35 Mg Cap 75 MG PO BID, CAP Furosemide (Lasix Tablet) 40 Mg Tb 40 MG PO DAILY, #30 Insulin Isophane & Reg (Human) (Humulin 70/30) 70/30 Inj 80 UNITS SC DAILY, #30 UNITS Insulin Isophane & Reg (Human) (Humulin 70/30) 70/30 Inj 40 UNITS SC HS, #30 UNITS Levothyroxine Sodium (Synthroid Tablet) 100 Mcg Tb 150 MCG PO DAILY, #30 Metolazone (Metolazone) 5 Mg Tab 5 MG PO QWEEKLY, TAB Discharge Statement: "Patient was advised to return to the ER or call 911 if any headaches, dizziness, shortness of breath, chest pain, abdominal pain, bleeding, fevers, or worsening of medical condition. Patient was counseled about treatment plan, medications, possible side effects, patientverbalized understanding. All questions were answered to the best of my ability. This discharge took greater then 30 minutes in planning, reviewing documentation, counseling the patient, and discussing with other team members." ASSESSMENT ASSESSMENT Assessment ESRD on HD, missed dialysis GIOVANNA AQUINO MD May 15, 2024 16:53
== END 2024-05-13 17:00 | disposition home health service (06) | DRG 194 ==
LOC: ER 12:46 → EDUNIT# 12:46 → EDBD 12:46 → TELE 18:48 → TELE-WESTW 05-11 02:58
PROVIDERS: ADMIT Hospitalist; ATTEND Hospitalist
PROC: 06HY33Z Insertion of Infusion Device into Lower Vein, Percutaneous Approach (ICD-10-PCS; principal; 2024-05-10)
PROC: 5A1D70Z Performance of Urinary Filtration, Intermittent, Less than 6 Hours Per Day (ICD-10-PCS; 2024-05-10)
PROC: 5A1D70Z Performance of Urinary Filtration, Intermittent, Less than 6 Hours Per Day (ICD-10-PCS; 2024-05-12)
DX: I13.2 Hypertensive heart and chronic kidney disease with heart failure and with stage 5 chronic kidney disease, or end stage renal disease (principal); E11.649 Type 2 diabetes mellitus with hypoglycemia without coma; E87.20 Acidosis, unspecified; D63.1 Anemia in chronic kidney disease; N18.6 End stage renal disease; E87.5 Hyperkalemia; I50.43 Acute on chronic combined systolic (congestive) and diastolic (congestive) heart failure; Z20.822 Contact with and (suspected) exposure to COVID-19; E03.9 Hypothyroidism, unspecified; E11.22 Type 2 diabetes mellitus with diabetic chronic kidney disease; Z99.2 Dependence on renal dialysis; Z79.4 Long term (current) use of insulin; Z79.899 Other long term (current) drug therapy; Z81.8 Family history of other mental and behavioral disorders; Z83.49 Family history of other endocrine, nutritional and metabolic diseases
CPT/HCPCS: 36415; 36556; 70450; 71045; 80048; 80074; 80202; 81001; 82962; 83605; 83880; 84132; 84484; 85025; 87040; 87426; 87804; 90935; 93005; 93306; 94640; 96365; 96366; 96375; 96376; 97110; 97116; 97163; 97530; 99291; 99292; G0378; J1815; J7042; P9047